=== PATIENT | female | born 1950 | race Caucasian/White ===

== ENCOUNTER 2017-09-17 17:39 | Emergency (ER) | payer MEDICAID, SELFPAY ==
[2017-09-17 17:40] VITALS: BP 144/96; PULSE 72; RESP 17; TEMP 36.7; O2SAT 98; BMI 24.3
--- NOTE | 2017-09-17 18:15 | EKG12_ITS ---
Test Reason : CP Blood Pressure : / mmHG Vent. Rate : 063 BPM Atrial Rate : 063 BPM P-R Int : 212 ms QRS Dur : 084 ms QT Int : 398 ms P-R-T Axes : 063 037 059 degrees QTc Int : 407 ms Sinus rhythm with 1st degree A-V block Nonspecific T wave abnormality Abnormal ECG Confirmed by ALOK GALARZA, YESSI ([id number]), editor city SANDRA VILLARREAL ([id number]) on 09/19/2017 1:28:13 PM Referred By: BEREKET Confirmed By:YESSI DICKINSON MD
[2017-09-17 18:25] LABS: Absolute Lymphocyte Count 1.52 X10^3/ul (0.83-4.51); Absolute Neutrophil Count 3.2 X10^3/uL (2.0-7.7); Basophil# 0.03 X10^3/uL; Basophil% 0.6 % (0-1); Eosinophil# 0.11 X10^3/uL; Eosinophils% 2.1 % (0-5); Hematocrit 40.5 % (37-47); Hemoglobin 13.7 g/dl (12.0-15.0); Lymphocyte # 1.52 X10^3/ul (4.0); Lymphocyte % 28.6 % (19-41); Mean Corp Hgb Conc 33.8 g/gl (32-36); Mean Corpuscular Hgb 29.7 pg (27.0-32.0); Mean Corpuscular Volume 87.9 fL (81-99); Mean Platelet Vol. 10.9 fl (6.2-12.0); Monocyte# 0.48 X10^3/uL; Neutrophil # 3.16 X10^3/uL (2.7-7.7); Neutrophil % 59.5 % (47-70); Platelet Count 220 K/mm3 (150-450); RBC Distribution Width CV 12.7 % (11.6-14.6); RBC Distribution Width SD 40.8 fl (35.1-43.9); Red Blood Count 4.61 M/mm3 (4.2-5.4); White Blood Count 5.3 K/mm3 (4.4-11.0)
--- NOTE | 2017-09-17 18:25 | RAD_ITS ---
STUDY: X-RAY CHEST REASON FOR EXAM: Female, 67 years old. Chest pain. Dizziness. TECHNIQUE: Frontal and lateral views of the chest. COMPARISON: None. FINDINGS: There is hyperinflation of the lungs consistent with chronic obstructive lung disease (COPD). No infiltrates or effusions. There is no demonstrated pleural abnormality. Normal size heart. Normal mediastinum and luis alfredo. Normal visualized pulmonary arteries. Normal visualized aortic arch and descending thoracic aorta. There are diffuse degenerative changes of the visualized thoracic spine. Normal visualized ribs, clavicles, and shoulders. There is no demonstrated abnormality of the visualized soft tissue structures of the upper abdomen. RAD/Chest PA and Lateral IMPRESSION: There are findings consistent with COPD. There is no evidence of acute chest disease. Electronically Signed: Rajesh Owusu MD at 18:42 EDT , Service support ,
[2017-09-17 18:26] LABS: POSITIVE COUNT NO; POSITIVE DIFFERENTIAL NO; POSITIVE MORPHOLOGY NO
[2017-09-17] MEDS: Aspirin 81 MG TAB.CHEW 324 MG PO (18:35)
[2017-09-17 18:40] VITALS: BP 146/79; PULSE 61; RESP 14; O2SAT 98
[2017-09-17 18:49] LABS: Anion Gap 8 (5-15); BUN 15 mg/dL (7-18); BUN/Creat Ratio 15.1 RATIO (10-20); Calcium,Total 8.6 mg/dL (8.5-10.1); Chloride 106 mmol/L (98-107); Creatinine, Serum 0.99 mg/dL (0.55-1.02); EST Glomerular Filtration Rate 60 mL/min (>60); Est Glom Filt Rate - Afr Amer 72 mL/min (>60); Estimated Creatinine Clearance 55.09 ml/min; Glucose 116 mg/dL (74-106); Sodium Level 141 mmol/L (136-145)
--- NOTE | 2017-09-17 19:42 | ED.DCSUM_ITS ---
- ER Visit Summary Date of Service: 09/17/17 Chief Complaint: Chest pain History of Present Illness: The patient is a 67 F with intermittent chest pain, lasting for hours at a time, for the last 2 or 3 months. She states for the last 3 or 4 days, he has been constant. It is left-sided, heaviness and burning. She also notes some type of nodule in the lateral chest wall that is sore and she cannot tell this is related or not. The discomfort is nonpleuritic and nonexertional, she cannot recall anything in particular that makes it worse or better, or that triggers the episodes when she has them, before 4 days ago, they were about every 3 days or so. Last few days she has also had disequilibrium that she has noticed when walking or turning her head. It is relatively short-lived. It is associated with no nausea or vomiting or headache. She has had chronic tinnitus of the right ear and that is unchanged, no earache. She is not vertiginous right now. She has had some cold intolerance, and gets palpitations off and on, which causes her to take an extra Tapazole, which she has been on for several months because of Graves' disease, after taking iodine for a while that she did not tolerate well. She had a cardiac stress test 10-12 years ago that was negative. She states she made an appointment with the nurse practitioner at her PCPs office for tomorrow , but when she made the call they told her she should come to the hospital today , the weekend. She states has a history of paroxysmal A. fib. Physical Examination: Well-appearing in no acute distress. Vital signs unremarkable. There is a tender rib just lateral to the left upper quadrant of the left breast, there is no palpable nodule or axillary lymphadenopathy. The rest of her chest is nontender. Lungs are clear to auscultation throughout, no splinting on deep inspiration, heart is regular without a murmur. No tachycardia. No JVD. No ectopy on the monitor. No calf tenderness or pedal edema. Abdomen benign. Thyroid nontender. Test Results: Other than first-degree heart block her EKG is normal with a rate of 63. Labs include a troponin and are normal, however TSH is abnormal at 17. Chest x-ray unremarkable. Emergency Department Course and Treatment: She was given a GI cocktail and aspirin, she felt much better on reevaluation. I suspect it was due to the GI cocktail. Will prescribe her a PPI and advised that she follow-up with her doctor, and also advised to not take extra Tapazole. Treatment Plan: Protonix daily and follow-up Disposition: Discharge home Impression: Chest pain, unspecified Hypothyroid state This note was generated with Karaz dictation software. It may contain incorrect words, spelling, and punctuation that were not noted in review of the chart prior to signing ED Disposition - Plan for ED Patient: Disposition: Home or Assisted Living Chief Complaint: Chest Pain Instructions: ED Chest Pain NonCardiac Prescriptions: Pantoprazole Sodium [Protonix] 40 mg PO DAILY #30 tab Referrals: Zulay Rodriguez MD [Primary Care Provider] - As soon as possible
[2017-09-17 19:58] VITALS: BP 133/75; PULSE 56; RESP 14; O2SAT 98
== END 2017-09-17 19:58 | disposition home or self-care (01) ==
PROVIDERS: Emergency Provider Emergency Medicine; Family Provider Internal Medicine; PCP Internal Medicine
DX: R07.9 Chest pain, unspecified (principal); E03.9 Hypothyroidism, unspecified; R51 Headache; R20.2 Paresthesia of skin; H93.11 Tinnitus, right ear; R42 Dizziness and giddiness; I44.0 Atrioventricular block, first degree; E05.00 Thyrotoxicosis with diffuse goiter without thyrotoxic crisis or storm; Z79.899 Other long term (current) drug therapy
CPT/HCPCS: 71046; 80048; 84443; 84484; 85025; 93005; 99285; A4216

== ENCOUNTER 2023-07-04 21:02 | Emergency (ER) | payer MEDICARE, MEDICAID, SELFPAY ==
[2023-07-04 21:03] VITALS: BP 140/98; PULSE 72; RESP 18; TEMP 36.6; O2SAT 99; BMI 20.7
--- NOTE | 2023-07-04 21:19 | EKG12_ITS ---
Test Reason : BACK PAIN Blood Pressure : / mmHG Vent. Rate : 074 BPM Atrial Rate : 074 BPM P-R Int : 192 ms QRS Dur : 080 ms QT Int : 380 ms P-R-T Axes : 063 033 073 degrees QTc Int : 421 ms Normal sinus rhythm Normal ECG Confirmed by ALOK GALARZA, YESSI ([id number]), food expeditor RONEY CURTIS ([id number]) on 07/07/2023 7:56:47 AM Referred By: Confirmed By:YESSI DICKINSON MD
--- NOTE | 2023-07-04 21:19 | CT_ITS ---
EXAM: CT ABDOMEN AND PELVIS WITHOUT INTRAVENOUS CONTRAST CLINICAL INDICATION: Right flank pain -- Right flank and pain into the right sacral area. TECHNIQUE: Helically acquired images were obtained of the abdomen and pelvis without intravenous contrast. This CT exam was performed using one or more of the following dose reduction techniques: automated exposure control, adjustment of the mA and/or kV according to patient size, and/or use of iterative reconstruction technique. CONTRAST: IV 100mL [id number]-[id number] COMPARISON: 02/16/2014 FINDINGS: LOWER THORAX: No significant abnormality. Lung bases are clear. No cardiomegaly. No significant pericardial effusion. ABDOMEN: LIVER: Multiple hepatic cysts are present for which no follow-up is indicated. GALLBLADDER AND BILE DUCTS: No significant abnormality. No calcified gallstones. No gallbladder distention or wall edema. No intra- or extrahepatic biliary ductal dilation. PANCREAS: No significant abnormality. No focal cystic mass. SPLEEN: No significant abnormality. Normal size without focal cystic or solid mass. ADRENALS: No significant abnormality. No nodules. KIDNEYS AND URETERS: No significant abnormality. Normal renal size and position. No hydronephrosis. STOMACH AND BOWEL: Moderate amount of colonic stool retention. No bowel obstruction. No focal inflammatory change. PELVIS: APPENDIX: No evidence of acute appendicitis. BLADDER: No significant abnormality. REPRODUCTIVE: Normal as visualized. No mass. ABDOMEN and PELVIS: INTRAPERITONEAL SPACE: No significant abnormality. No ascites or other fluid collection. No free air. BONES/JOINTS: Degenerative changes throughout the visualized axial and appendicular skeletal structures. No suspicious lytic or blastic abnormality. SOFT TISSUES: Small fat-containing umbilical hernia. VASCULATURE: Atherosclerosis of the aorta and its branch vessels. Abdominal aorta is non-dilated. LYMPH NODES: No significant abnormality. No enlarged lymph nodes. CT/Abdomen/Pelvis without Cont IMPRESSION: Moderate amount of colonic stool retention. No bowel obstruction. No additional acute abnormalities. Electronically Signed: Watson Loomis DO at 23:14 EST ,
--- NOTE | 2023-07-04 21:20 | EX.ED.DYSGE1 ---
HPI <Dr. Deondre Peralta MD - Last Filed: 07/04/23 22:49> History of Present Illness Chief Complaint: Flank Pain Informant: patient and EMS Narrative Narrative: Patient presents with right sacral area pain. Patient states that she has had this for 3 or 4 days. She thinks she slept wrong. She states she has problems sleeping on her sides. She cannot have her bones touch each other or they will come out of joint. She tosses and turns frequently. This has been going on more than 10 years. But she now has pain in the right lower sacral area. It does not radiate anywhere. She does not have abdominal pain nausea vomiting diarrhea or difficulty eating. She states she is urinating normally and has no trouble starting or stopping stream other than what is chronic. Bowel habits are normal without blood. She states she does have pain when she walks but it is in the sacral area and not the right hip. Does not have numbness tingling weakness or swelling in the legs. Patient thought this could be a urine infection even though she has no urinary symptoms. She took 1 nitrofurantoin at home that was leftover from years ago and it did not help. She has not taken anything for pain but does not want anything for pain. She will usually take vitamin E or turmeric. Patient is not on any medications now. She has had no recent trauma. No fevers. No acute weight loss. PFSH <Dr. Deondre Peralta MD - Last Filed: 07/04/23 22:49> [facility] Home Medications Methimazole [Tapazole] 10 mg PO DAILY 09/17/17 [History Last Taken Unknown] pantoprazole 40 mg tablet,delayed release 40 mg PO DAILY #30 tabs 09/17/17 [Rx Last Taken Unknown] gabapentin 100 mg capsule 100 mg PO TID 30 days #90 caps 07/04/23 [Rx Last Taken Unknown] methocarbamol 500 mg tablet 500 mg PO 4X/DAY PRN PRN Muscle pain/spasm #40 tabs 07/04/23 [Rx Last Taken Unknown] Allergy/AdvReac Type Severity Reaction Status Date / Time blue dye Allergy Rash Verified 07/04/23 21:03 Penicillins Allergy Rash Verified 07/04/23 21:03 red dye Allergy Rash Verified 07/04/23 21:03 Social History Smoking Status: Never smoker ROS <Dr. Deondre Peralta MD - Last Filed: 07/04/23 22:49> ROS ED Constitutional Constitutional ED: Denies chills, fever(s) or sweats Eyes Eyes: Denies change in vision ENT ENT ED: Denies rhinorrhea or sore throat Cardiovascular Cardiovascular: Denies chest pain or palpitations Respiratory/Chest Respiratory/Chest: Denies cough or dyspnea Gastrointestinal Gastrointestinal: Denies abdominal pain, constipation, diarrhea, melena, nausea or vomiting Genitourinary Genitourinary ED: Denies dysuria, hematuria or urinary frequency Musculoskeletal Musculoskeletal: Reports back pain and other Details: Patient has right lower sacral/back pain. See history of present illness. ; Denies arthralgias, myalgias or neck pain Integumentary Denies Abrasions or rash Neurologic Neurologic: Denies paresthesias or weakness Endocrine Endocrinology: Denies polydipsia or polyuria Hematologic/Lymphatic Hematologic/Lymphatic: Denies easy bleeding, easy bruising or lymphadenopathy Allergic/Immunologic Allergic/Immunologic ED: Denies urticaria EXAM <Dr. Deondre Peralta MD - Last Filed: 07/04/23 22:49> Physical Exam Narrative Exam Narrative: CONSTITUTIONAL: Patient is nontoxic in appearance. The patient looks comfortable. Work of breathing looks normal. She carries on normal conversation HEENT: No notable trauma. Mucous membranes moist. EYES: No conjunctival injection. No pallor. NECK: No meningismus. No JVD. CARDIOVASCULAR: Regular rate. Regular rhythm. No notable murmur. No JVD. RESPIRATORY: No respiratory distress. Breathing is unlabored. No wheezes. Saturations are normal at 99% on room air showing no hypoxia. GASTROINTESTINAL: Not distended. Bowel sounds are normal. No tenderness. No guarding. No rebound. No palpable mass. No bruit. Overall very benign abdominal exam. GENITOURINARY: No tenderness over the bladder. No CVA tenderness. Her pain is actually much lower than the normal CVA area. MUSCULOSKELETAL: Atraumatic. No peripheral edema. No cord. No tenderness along the deep venous system. No asymmetry. Distal pulses are intact. I am able to axial load her legs and rotate her legs and hips without any obvious pain. When I do load her heel on the right she has a little bit of discomfort in the sacral area but not nearly as much is when she weight bears. She has a little bit of tenderness near the SI joint on the right. But no skin changes. There is a tattoo there but no sign of inflammation. No erythema. No vesicles. NEUROLOGICAL: Patient is alert and oriented. No focal deficit noted. There is no distal sensory changes. No weakness. No asymmetry of strength. She denies any radiation of pain. SKIN: No noted rashes. No diaphoresis. No vesicles noted. No notable pallor. PSYCHIATRIC: Patient is calm. Mood is appropriate. Const Vital Signs: 07/04/23 21:03 Temperature 97.8 F Temperature Source Oral Pulse Rate 72 Respiratory Rate 18 Blood Pressure 140/98 H Blood Pressure Mean 112 Pulse Ox 99 Oxygen Delivery Method Room Air <Dr. Jaleel Montague DO - Last Filed: 07/04/23 23:42> Physical Exam Const Vital Signs: 07/04/23 21:03 Temperature 97.8 F Temperature Source Oral Pulse Rate 72 Respiratory Rate 18 Blood Pressure 140/98 H Blood Pressure Mean 112 Pulse Ox 99 Oxygen Delivery Method Room Air MDM <Dr. Deondre Peralta MD - Last Filed: 07/04/23 22:49> [facility] MDM Narrative Medical decision making narrative: Patient was concerned about her kidney function. We will do blood work. We will do a scan through the area. I do not think this patient sees physicians a lot. I would like to make sure there is no kidney stone but also I want to make sure there is no mass or tumor or issue that may be causing her pain. She does not want anything for pain now because she does not like to take medications. We will respect this. Patient CBC is normal. Patient's electrolytes show no marked abnormalities minimal signs of dehydration with elevated BUN to creatinine ratio but she was given IV fluid. No urine callus this is clean. She does want the CT scan. However, she does not want IV contrast. I told CT it was okay to get these films without the contrast. We would still see kidney stone, significant mass or any erosive bony lesion without contrast. This study is pending at this time. Lab Data Attestation: I reviewed the patient's lab results. Labs: Laboratory Results - last 24 hr 07/04/23 07/04/23 21:48 21:50 WBC 5.8 RBC 4.45 Hgb 12.7 Hct 39.0 MCV 87.6 MCH 28.5 MCHC 32.6 RDW Std Deviation 37.9 RDW Coeff of Dave 11.8 Plt Count 250 MPV 10.5 Immature Gran % (Auto) 0.300 Neut % (Auto) 66.6 Lymph % (Auto) 20.8 Power % (Auto) 8.5 Eos % (Auto) 3.3 Baso % (Auto) 0.5 Absolute Neuts (auto) 3.8 Absolute Lymphs (auto) 1.20 Nucleated RBC % 0 Sodium 141 Potassium 4.1 Chloride 108 H Carbon Dioxide 30.0 Anion Gap 3 L BUN 19 H Creatinine 0.73 Estim Creat Clear Calc 62.22 Est GFR (MDRD) Af Amer 102 Est GFR (MDRD) Non-Af 84 BUN/Creatinine Ratio 26.2 H Glucose 84 Calcium 9.0 Urine Color Yellow Urine Clarity Clear Urine pH 7.0 Ur Specific [place] 1.010 Urine Protein Negative Urine Glucose (UA) Normal Urine Ketones Negative Urine Occult Blood Negative Urine Nitrite Negative Urine Bilirubin Negative Urine Urobilinogen Normal Ur Leukocyte Esterase 25 H Urine RBC 0 SEEN Urine WBC 0-5 SEEN Ur Squamous Epith Cells 0 SEEN Urine Bacteria 0 SEEN Urine Mucus 0 SEEN Radiography Diagnostic Testing: Clinical Impression(s) from Imaging Studies Abdomen/Pelvis CT 07/04/23 21:19 IMPRESSION: Moderate amount of colonic stool retention. No bowel obstruction. No additional acute abnormalities. Electronically Signed: Watson Loomis DO at 23:14 EST , EKG Initial EKG: Comments: My independent interpretation of the patient's EKG shows a normal sinus rhythm. Overall rate is 74. No ectopy. There is some baseline variation though. No acute ST elevation or depression. UT interval, QRS duration and QTc are all normal. <Dr. Jaleel Montague DO - Last Filed: 07/04/23 23:42> [facility] Lab Data Labs: Laboratory Results - last 24 hr 07/04/23 07/04/23 21:48 21:50 WBC 5.8 RBC 4.45 Hgb 12.7 Hct 39.0 MCV 87.6 MCH 28.5 MCHC 32.6 RDW Std Deviation 37.9 RDW Coeff of Dave 11.8 Plt Count 250 MPV 10.5 Immature Gran % (Auto) 0.300 Neut % (Auto) 66.6 Lymph % (Auto) 20.8 Power % (Auto) 8.5 Eos % (Auto) 3.3 Baso % (Auto) 0.5 Absolute Neuts (auto) 3.8 Absolute Lymphs (auto) 1.20 Nucleated RBC % 0 Sodium 141 Potassium 4.1 Chloride 108 H Carbon Dioxide 30.0 Anion Gap 3 L BUN 19 H Creatinine 0.73 Estim Creat Clear Calc 62.22 Est GFR (MDRD) Af Amer 102 Est GFR (MDRD) Non-Af 84 BUN/Creatinine Ratio 26.2 H Glucose 84 Calcium 9.0 Urine Color Yellow Urine Clarity Clear Urine pH 7.0 Ur Specific [place] 1.010 Urine Protein Negative Urine Glucose (UA) Normal Urine Ketones Negative Urine Occult Blood Negative Urine Nitrite Negative Urine Bilirubin Negative Urine Urobilinogen Normal Ur Leukocyte Esterase 25 H Urine RBC 0 SEEN Urine WBC 0-5 SEEN Ur Squamous Epith Cells 0 SEEN Urine Bacteria 0 SEEN Urine Mucus 0 SEEN Radiography Diagnostic Testing: Clinical Impression(s) from Imaging Studies Abdomen/Pelvis CT 07/04/23 21:19 IMPRESSION: Moderate amount of colonic stool retention. No bowel obstruction. No additional acute abnormalities. Electronically Signed: Watson Loomis DO at 23:14 EST , Treatment and Re-Evaluation Comments:: The patient was signed out to me while awaiting the abdominal CT. History of duodenal mild/moderate colonic stool constipation but otherwise no signs of obstruction or infectious process or kidney stone or tumor or mass. Based on her history and exam I do feel this is most likely pain from her sacroiliac joint. I will place her on Robaxin and gabapentin to help with pain. Based on the constipation she will be prescribed magnesium citrate. However at this time as there does not appear to be an infectious process or some type of new tumor or obstruction there is no need for inpatient admission and she is otherwise safe for discharge Discharge Plan Triage Chief Complaint: Flank Pain ED Provider: Deondre Peralta Dx/Rx/DC Orders Clinical Impression: Pain of right sacroiliac joint Instructions: Anatomy of the Sacroiliac Joint, ED Sacroiliitis Prescriptions: New methocarbamol 500 mg tablet 500 mg PO 4X/DAY PRN PRN (Reason: Muscle pain/spasm) Qty: 40 1RF gabapentin 100 mg capsule 100 mg PO TID 30 Days Qty: 90 0RF No Action Methimazole [Tapazole] 10 MG tablet 10 mg PO DAILY pantoprazole 40 MG tablet 40 mg PO DAILY Qty: 30 0RF Primary Care Provider: Zulay Rodriguez Referrals: Zulay Rodriguez MD [Primary Care Provider] - Activity Restrictions/Additional Instructions: Please use the magnesium citrate that was given to you in the ER to help with your constipation. Perform stretches for your sacroiliac joint to reduce pain and speed healing and use the prescribed medications as directed. Follow-up with your family doctor to discuss need for referral to orthopedics or potential pain management to discuss potential injections or further testing such as an MRI to further evaluate the cause your pain. Return to the ER should you have any further concerns Disposition Disposition: Home, Self Care Capacity <Dr. Deondre Peralta MD - Last Filed: 07/04/23 22:49> [employer] Reflex Medical hold order details:: IF a medical hold is selected below, a suggested order for a MEDICAL HOLD will reflex upon signing the document. Next of kin: [place] law dictates a PRIORITY LIST for identifying legal decision-maker/legal next of kin in the following order (LNOK): 1st: The patient?s legal guardian, if any 2nd: The patient's spouse (if status is questionable, consult Risk Management) 3rd: The patient?s adult child(geraldo) (majority, if multiple children) 4th: The patient?s parents 5th: The patient?s adult siblings (majority, if multiple children siblings)
--- OUTSIDE RECORDS SUMMARY | 2023-07-04 21:32 | XMS RPT_ITS | CCD ---
Author Name Unknown Address [address] [place] [address] Organization [facility] Care Team Providers Care Balloon Pilot Name Role Phone DUANE MORALEZ Attending Unavailable DEE ROACH Primary Care Unavailable Derian Rodriguez MD Primary Care Provider Derian Rodriguez MD Primary Care Provider Derian Rodriguez MD Primary Care Provider SERA BLACKWOOD Attending Unava ilable AZEEM DERIAN Ervin Primary Care Unavailable AZEEM DERIAN Ervin Primary Care Unavailable DESI JAMIL Referring Unavailable TALAMPAS DERIAN D Primary Care Unavailable DESI JAMIL Attending Unavailable TALAMPLINNETTE DERIAN D Primary Care Unavailable Allergies Allergy Classification Reported Allergen(s) Allergy Type Date of Onset Reaction(s) Facility (20 sources) Amoxicillin; Translations: [AMOXICILLIN] Drug Allergy 2 Rash, Itching [facility] Work Phone: (20 sources) Azithromycin; Translations: [AZITHROMYCIN] Drug Allergy 0 Hives [facility] Work Phone: (20 sources) celecoxib; Translations: [CELECOXIB] Drug Allergy 0 Other: See Comments [facility] Work Phone: (20 sources) Contrast media; Translations: [RED DYE] Drug Allergy [address] [facility] (20 sources) montelukast; Translations: [MONTELUKAST SODIUM] Drug Allergy [address] [facility] Work Phone: (13 sources) Penicillins; Translations: [PENICILLINS] Propensity to adverse reactions 5 [facility] Work Phone: (20 sources) Sucralfate; Translations: [SUCRALFATE] Drug Allergy 1 Hives, GI Upset [facility] Work Phone: (20 sources) Sulfonamides (Antibiotic); Translations: [SULFA (SULFONAMIDE ANTIBIOTICS)] Drug Allergy 7 Hives [facility] (20 sources) zafirlukast; Translations: [ZAFIRLUKAST] Drug Allergy 5 Rash [facility] Work Phone: (20 sources) zolpidem; Translations: [ZOLPIDEM TARTRATE] Drug Allergy 6 Itching [facility] Work Phone: (20 sources) Penicillins Propensity to adverse reactions 5 [facility] Work Phone: Medications Current Medications Medication Drug Class(es) Dates Sig (Normalized) Sig (Original) acetaminophen 325 mg / oxyCODONE hydrochloride 5 mg oral tablet (2 sources) Opioid Agonist Start: 11-01-2021 End: 11-08-2021 take 1 tablet by mouth every six hours as needed oxyCODONE-acetami nophen (PERCOCET) 5-325 mg tablet Indications: Acute left-sided low back pain without sciatica , Chronic pain of both knees , Chronic bilateral low back pain with left-sided sciatica Take 1 tablet by mouth every 6 hours as needed for up to 7 days. 28 tablet 0 11/01/2021 11/08/2021 Active Completed/Discontinued Medications Medication Drug Class(es) Dates Sig (Normalized) Sig (Original) cholecalciferol 0.125 mg oral tablet (20 sources) Vitamin D Start: 12-11-2019 End: 06-29-2022 take 1 tablet by mouth once daily cholecalciferol (VITAMIN D3) 5,000 unit tab Take 1 tablet by mouth once daily. 90 tablet 3 06/29/2022 Active Problems Active Problems Problem Classification Problem Date Documented Date Episodic/Chronic Asthma (20 sources) Mild intermittent asthma; Translations: [Mild intermittent asthma, uncomplicated] Onset: 05-09-2005 01-12-2017 Chronic Cardiac dysrhythmias (20 sources) Atrial flutter; Translations: [Unspecified atrial flutter] Onset: 06-15-2006 06-15-2006 Chronic Conditions associated with dizziness or vertigo (1 source) Benign paroxysmal positional vertigo; Translations: [Benign paroxysmal vertigo, unspecified ear] Episodic Diabetes mellitus without complication (1 source) Impaired fasting glycemia; Translations: [Impaired fasting glucose] Episodic Disorders of teeth and jaw (2 sources) Toothache; Translations: [Other specified disorders of teeth and supporting structures] Onset: 02-27-2023 02-28-2023 Episodic Esophageal disorders (20 sources) Gastroesophageal reflux disease; Translations: [Gastro-esophageal reflux disease without esophagitis] Onset: 05-09-2005 05-09-2005 Chronic Genitourinary symptoms and ill-defined conditions (2 sources) Dysuria; Translations: [Dysuria] Episodic Malaise and fatigue (1 source) Fatigue; Translations: [Chronic fatigue, unspecified] Chronic Malaise and fatigue (2 sources) Fatigue; Translations: [Other fatigue] Episodic Menopausal disorders (20 sources) Atrophic vaginitis; Translations: [Postmenopausal atrophic vaginitis] 12-18-2018 Chronic Miscellaneous mental health disorders (1 source) Primary insomnia; Translations: [Primary insomnia] Chronic Mood disorders (20 sources) Bipolar disorder; Translations: [Bipolar disorder, unspecified] Onset: 06-15-2006 06-15-2006 Chronic Nutritional deficiencies (1 source) Vitamin D deficiency; Translations: [Vitamin D deficiency, unspecified] Chronic Osteoarthritis (3 sources) Primary coxarthrosis, bilateral; Translations: [Bilateral primary osteoarthritis of hip] Onset: 04-12-2022 Chronic Other aftercare (4 sources) Patient encounter status; Translations: [Other nursing home (current) drug therapy] Episodic Other aftercare (1 source) Encounter for therapeutic drug level monitoring; Translations: [Encounter for therapeutic drug monitoring] Onset: 02-28-2023 Episodic Other connective tissue disease (2 sources) Muscle pain; Translations: [Myalgia, unspecified site] Episodic Other injuries and conditions due to external causes (1 source) Injury of right knee; Translations: [Unspecified injury of right lower leg, subsequent encounter] Episodic Other non-traumatic joint disorders (2 sources) Multiple joint pain; Translations: [Pain in unspecified joint] Episodic Other non-traumatic joint disorders (3 sources) Pain in right knee; Translations: [Pain in joint, lower leg] Episodic Residual codes; unclassified (2 sources) History of clinical finding in subject; Translations: [Personal history of other specified conditions] Episodic Thyroid disorders (20 sources) Hyperthyroidism; Translations: [Thyrotoxicosis, unspecified without thyrotoxic crisis or storm] Onset: 05-09-2005 04-23-2015 Chronic Past or Other Problems Problem Classification Problem Date Documented Da te Episodic/Chronic Allergic reactions (20 sources) Solar degeneration; Translations: [Other skin changes due to chronic exposure to nonionizing radiation] Onset: 04-23-2012 04-23-2012 Episodic Other injuries and conditions due to external causes (1 source) Unspecified injury of unspecified lower leg, initial encounter; Translations: [Knee injury, initial encounter] Onset: 04-12-2022 Episodic Other non-traumatic joint disorders (20 sources) Arthralgia of the pelvic region and thigh; Translations: [Pain in unspecified hip] Onset: 03-01-2011 03-01-2011 Episodic Other non-traumatic joint disorders (20 sources) Pain in right hip joint; Translations: [Pain in right hip] Onset: 07-25-2011 07-25-2011 Episodic Other non-traumatic joint disorders (1 source) Effusion, right knee; Translations: [Effusion of right knee] Onset: 04-12-2022 Episodic Other skin disorders (20 sources) Solar lentigo; Translations: [Other melanin hyperpigmentation] Onset: 04-23-2012 04-23-2012 Episodic Other skin disorders (20 sources) Seborrheic keratosis; Translations: [Other seborrheic keratosis] Onset: 04-23-2012 04-23-2012 Episodic Spondylosis; intervertebral disc disorders; other back problems (20 sources) Sciatica; Translations: [Sciatica, left side] Onset: 01-12-2010 01-12-2010 Episodic Sprains and strains (20 sources) Sprain of spinal ligament; Translations: [Sprain of unspecified site of back] Onset: 03-01-2011 03-01-2011 Episodic Viral infection (20 sources) Verruca vulgaris; Translations: [Viral wart, unspecified] Onset: 04-23-2012 04-23-2012 Episodic Results Test Name Value Interpretation Reference Range Facil ity Vital Signs Date Time Vital Sign Value Performing Clinician Geoff moore 02-28-2023 14:51-0400 Body temperature 97.59 [degF] Desi Loulou EDITOR MANAGING DIRECTOR.POWDER NIPPER Work Phone: [facility] 02-28-2023 14:51-0400 Body weight 58.51 kg Desi Loulou EDITOR MANAGING DIRECTOR.POWDER NIPPER Work Phone: [facility] 02-28-2023 14:51-0400 Diastolic blood pressure 60 mm[Hg] Desi Loulou EDITOR MANAGING DIRECTOR.POWDER NIPPER Work Phone: [facility] 02-28-2023 14:51-0400 Heart rate 100 /min Desi Loulou EDITOR MANAGING DIRECTOR.POWDER NIPPER Work Phone: [facility] 02-28-2023 14:51-0400 Respiratory rate 16 /min Desi Loulou EDITOR MANAGING DIRECTOR.POWDER NIPPER Work Phone: [facility] 02-28-2023 14:51-0400 Systolic blood pressure 90 mm[Hg] Desi Loulou EDITOR MANAGING DIRECTOR.POWDER NIPPER Work Phone: [facility] 05-13-2022 11:59-0500 Diastolic blood pressure 72 mm[Hg] Derian Rodriguez MD Work Phone: [facility] 05-13-2022 11:59-0500 Systolic blood pressure 140 mm[Hg] Derian Rodriguez MD Work Phone: [facility] 05-13-2022 11:58-0500 Heart rate 62 /min Derian Rodriguez MD Work Phone: [facility] 05-13-2022 11:58-0500 SaO2% (BldA) [Mass fraction] 100 % Derian Rodriguez MD Work Phone: [facility] 11-01-2021 10:03-0400 Body weight 68.95 kg Derian Rodriguez MD Work Phone: [facility] 11-01-2021 10:03-0400 Diastolic blood pressure 72 mm[Hg] Derian Rodriguez MD Work Phone: [facility] 11-01-2021 10:03-0400 Heart rate 80 /min Derian Rodriguez MD Work Phone: [facility] 11-01-2021 10:03-0400 Systolic blood pressure 120 mm[Hg] Derian Rodriguez MD Work Phone: [facility] 10-01-2021 09:55-0400 Body weight 72.03 kg Karla Tello EDITOR MANAGING DIRECTOR.POWDER NIPPER Work Phone: [facility] 10-01-2021 09:55-0400 Diastolic blood pressure 78 mm[Hg] Karla Tello EDITOR MANAGING DIRECTOR.POWDER NIPPER Work Phone: [facility] 10-01-2021 09:55-0400 Heart rate 70 /min Karla Tello EDITOR MANAGING DIRECTOR.POWDER NIPPER Work Phone: [facility] 10-01-2021 09:55-0400 Respiratory rate 20 /min Karla Tello EDITOR MANAGING DIRECTOR.POWDER NIPPER Work Phone: [facility] 10-01-2021 09:55-0400 SaO2% (BldA) [Mass fraction] 97 % Karla Tello EDITOR MANAGING DIRECTOR.POWDER NIPPER Work Phone: [facility] 10-01-2021 09:55-0400 Systolic blood pressure 118 mm[Hg] Karla Tello EDITOR MANAGING DIRECTOR.POWDER NIPPER Work Phone: [facility] Encounters Encounter Date Encounter Type Care Provider Facility Start: 05-02-2023 Telephone encounter Derian mcmanus MD Work Phone: [facility] Procedures Date Procedure Procedure Detail Performing Clinician Start: 02-28-2023 Urnls dip stick/tabl et rgnt auto w/o microscopy Desi Jamil EDITOR MANAGING DIRECTOR.POWDER NIPPER Work Phone: Start: 05-13-2022 Lipid 1996 panel - S sonia or Plasma Desi Jamil EDITOR MANAGING DIRECTOR.POWDER NIPPER Work Phone: Start: 10-14-2020 Adult depression scr eening assessment Derian Rodriguez MD Work Phone: Start: 05-09-2018 Colonoscopy Derian beckett MD Work Phone: Start: 08-23-2016 Mammography Derian beckett MD Work Phone: Plan of Treatment Date Care Activity Detail Author Start: 05-13-2027 Lipid 1996 panel - S sonia or Plasma Lipid Screening [facility] Start: 05-13-2027 LIPID SCREEN LIPID SCREEN [facility] Start: 02-28-2026 Diabetes Screening Diabetes Screenwi g [facility] Start: 05-13-2025 DIABETES SCREEN DIABETES SCREEN [facility] Start: 05-13-2025 Diabetes Screening Diabetes Screenin g [facility] Start: 11-01-2024 DIABETES SCREEN DIABETES SCREEN [facility] Start: 10-01-2024 DIABETES SCREEN DIABETES SCREEN [facility] Start: 02-29-2024 Annual PCP Team Junior Administrative Assistant naomie Disease Visit Annual PCP Team Chronic Disease Visit [facility] Start: 12-01-2023 DIABETES SCREEN DIABETES SCREEN [facility] Start: 05-13-2023 ANNUAL PCP TEAM ELECTRIC BLASTING CAP ASSEMBLER NAOMIE DISEASE VISIT ANNUAL PCP TEAM CHRONIC DISEASE VISIT [facility] Start: 02-28-2023 End: 04-30-2023 Comprehensive metabolic 2000 panel - Serum or Plasma [facility] Work Phone: Immunizations Immunization Date Immunization Notes Care Provider Lindsay fowler 05-09-2018 influenza virus vaccine, unspecified formulation Desi Jamil APRN.CNP Work Phone: [facility] 12-24-2008 tetanus toxoid, redu elizabeth diphtheria toxoid, and acellular pertussis vaccine, adsorbed Derian Rodriguez MD Work Phone: [facility] Work Phone: 05-24-2004 influenza virus vaccine, unspecified formulation Derian Rodriguez MD Work Phone: [facility] Work Phone: Payers Date Payer Category Payer Medicaid [id number] 2020 Medicaid MEDICAID [facility] MEDICAID [id number] 2020-Present [phone] [address] [place] [address] Medicaid [id number] 2020 Medicaid [id number] 2020 Medicaid [id number] 2018 Medicaid [id number] 1950 Unknown [id number] Social History Date Type Detail Facility Start: 09-21-2012 Tobacco smoking stat [facility] Never smoked tobacco [facility] Start: 02-13-2021 End: 02-28-2023 Alcohol intake Current non-drinker of alcohol (finding) [facility] Start: 1950 Sex Assigned At Not on file [facility] Start: 09-19-2021 End: 05-13-2022 Exposure to SARS-CoV-2 (event) Not sure [facility] Start: 09-21-2012 Tobacco use and exposure Smokeless tobacco non-user [facility] Work Phone: Start: 03-20-2019 End: 02-28-2023 History of Social function [facility] Start: 03-20-2019 End: 02-28-2023 Tobacco use panel [facility] Adult Depression Screening Assessment 0 [facility] Clinical Notes 09-29-2021 to 05-22-2023 Telephone Encounter - Milagros Stover LPN - 05/22/2023 3:50 PM ESTTelephone Encounter - Adriana Buchanan LPN - 05/19/2023 2:38 PM ESTTelephone Encounter - Byron Burleson RN - 05/18/2023 1:48 PM EST Note Date & Type Note Facility 05-22-2023 Miscellaneous Notes Pt called back and information listed below given. Pt will check with [facility]. Milagros Stover LPN Completed CMN form has been faxed back. Attempted to contact patient but no answer and recording received stating The wireless customer is not available. Addendum to 05/13/22 progress note since had discussed need for bed pads at that appointment and that is related to her need for other incontinence supplies. CMN in office Not sure if signed already and just waiting for the addended progress note. The following approved medication requests have been transmitted electronically. Requested Prescriptions Signed Prescriptions Disp Refills Diaper,Brief, Adult,Disposable (DISPOSABLE BRIEF) 350 Each 11 Sig: Pull ups (no diaper) Large Attends (or equivalent) 10 to 12 daily.Size Large.Maximum absorbancy. Diagnoses: N95.2 Post menopausal atrophic vaginitis, R32 urinary incontinence unspecified type, R15.9 incontinence of feces unspecified fecal incontinence type. Authorizing Provider: DERIAN RODRIGUEZ MD Patient verbalized frustration, stating she has waited 5 weeks to get these pull-ups. States she has been using her grocery money to buy these and she cannot afford that. Asking if pcp can complete CMN and fax to ABDULAZIZ Rodriguez. Patient aware [facility] Rodriguez has the pull up Rx. Did receive the CMN and PCP to complete. Andra Drummond LPN Order faxed to [facility]ano Rodriguez / fax [phone]. Still no CMN received. Andra Drummond LPN Patient calling said form was faxed on 05/08, she did not know to what fax number. Gave her PCP fax number and patient will call and have form faxed again. Patient is calling and is very upset, she is out of supplies, she needs help today. She stated please call her more than once. Her phone will not accept the calls from the office. Fax order to [facility] Is there a CMN that still needs signed? Patient is calling today regarding the order for these pull ups Large- Attends using 10-12 daily Dx: N95.2 and R32 R15.9 Please send to [facility] / fax [phone] The order per patient was sent in error to [facility] who do not do the DME, that is per patient, [facility] is where this is to be faxed to. Please resend printed RX to fax above Have we received CMN? Make sure received and signed YUKO in AM 05/09 Verify we have all the info needed for CMN, including how many needed per day and diagnoses Patient called and is very upset. Said [facility] still has not received the CMN for her large pullups. Said she has spent all of her money buying pullups at [facility] [employer] waiting on the order and CMN for the last month. Wants to know the status of it today. Said she will call us back in 2 hours to check. We are unable to call her because there is an issue with her phone. A CMN form has not been received. Called [facility] office at [phone] and spoke with Ignacia. Did confirm that the CMN was sent to the wrong fax number. Provider her with the correct number. Will await form prior to closing encounter. Nakita Emerson is calling Derian Rodriguez MD today. [facility] received the correct size large order for the adult diaper briefs, however, they still need an CMN before the order can be filled. Please fax as soon as possible, she's been trying get these for a couple of week. Please fax to [phone] documented in this encounter [facility] 04-26-2023 Miscellaneous Notes Order has been located and faxed to number provided below. Copied and pasted message below from a closed encounter. This is for Pull ups. Has this been faxed? \Sylvia Oliver CB 04/26/23 2:17 PM Note Patient calling back stating that [facility] still has not received the orders. Patient states we are using the wrong fax number. Fax number [phone]. documented in this encounter [facility] 04-19-2023 Miscellaneous Notes Order faxed to [facility]. Attempted to reach patient but phone is disconnects. New RX printed, will sign and we can fax to [facility]. Thanks! Nakita Emerson is calling Derian Rodriguez MD today with concern regarding Orders and Medication Problem (/) Patient is calling in asking to have NEW order for pullup's and they need to be Large Attends and this needs to go to [facility]. States that the Medium they sent does NOT fit. Patient has been identified by name and birthdate. Duration of symptoms: N/A Person calling: self Call patient at: at home [phone] (home) [phone] (cell) Was an appointment scheduled: No Closing statement: Results or non-symptom based questions: Thank you for calling [facility], your call will be returned within the next business day. Bridget Salcedo documented in this encounter [facility] 03-03-2023 Miscellaneous Notes Patient returned call and went over results, notes from Desi Jamil LEAD SYSTEMS ENGINEER with understanding. Patient said no to taking thyroid medication question. Attempted to reach patient with no answer and unable to leave a message. Pts phone gives message, wireless customer you are calling is not available please try again later. . Called and left a message on Pts daughter Haresh REAGAN asking to call back for message. Need to let her know we were trying to get a hold of her mother to give her information and were not able to get through. See if daughter would be able to have her mother call in for results. Please call patient and let her know that her blood counts, kidney function, liver function and electrolytes are stable and without issues. The thyroid test shows her thyroid is very overactive. She could definitely benefit from treatment. I know previously she refused, is she interested in medication for this at this time? documented in this encounter [facility] 03-01-2023 Miscellaneous Notes Patient seen 02/28/23. Patient is scheduled 02/28/23 to request a referral to an oral surgeon. Patient was in [place] [facility] 02/27/23 for same request. [place] [facility] recommended that patient contact her insurance provider to find an oral surgeon in network with her insurance. Attempted to reach patient to question why patient is seeing Desi for same issues. Nothing different that Desi can do vs what ER told her to do. If she contacted her insurance provider and just needs a referral to oral surgeon in network can place referral without having to see her. No answer and unable to leave a message. documented in this encounter [facility] 02-28-2023 Note HNO ID: [id number] Author: Desi Jamil APRN.NAGA Service: ? Author Type: Nurse Practitioner Type: Progress Notes Filed: 02/28/2023 4:46 PM Note Text: SUBJECTIVE Nakita Emerson is a 72 year old female here today for ER follow up. Chief Complaint Patient presents with: Consult: dental surgeon questioning fracture to jaw after seen a dentist on 02/03/23 headache on left side since seeing dentist. Dysuria: started on 02/03/2023 HPI Nakita Emerson is a 72 year old female patient of Derian Rodriguez MD. Seen in [place] ER yesterday for dental pain. She had a tooth extraction in January. Dentist caused some issues. Concerns of repair needing an oral surgeon. Not sure who takes her insurance but would like a referral. Also wants to update her labs. Hyperthyroid but no recent lab check. Also has concerns of dysuria, onset was about a month ago. Her medications were reviewed today and her list is now up to date. Medications Current Outpatient Medications Medication Sig nitrofurantoin monohydrate and macrocrystal (MACROBID) 100 mg capsule Take 1 capsule by mouth twice daily. Diaper,Brief, Adult,Disposable (DISPOSABLE BRIEF) Pull ups (no diaper). Size TP 4525, small. Maximum absorbancy. Diagnoses: N95.2 Post menopausal atrophic vaginitis, R32 urinary incontinence unspecified type, R15.9 incontinence of feces unspecified fecal incontinence type. cholecalciferol (VITAMIN D3) 5,000 unit tab Take 1 tablet by mouth once daily. Comp.Stocking,Thigh,Long,Small [facility] [place] [place] Wear stocking daily. Patient requests stockings with zipper; extending from ankle to thigh. Custom fit if no available length fits. Underpads 23 X 36 pads 1 Each three times daily as needed. Dx:(N95.2) Post-menopausal atrophic vaginitis; (R32) Urinary incontinence, unspecified type; (R15.9) Incontinence of feces, unspecified fecal incontinence type levalbuterol tartrate HFA 45 mcg/actuation inhaler Inhale 1-2 Puffs as instructed every 4 hours as needed. (still has inhaler to use) potassium iodide (SSKI) 1 gram/mL solution 4 to 6 drops daily as directed multivit with minerals/lutein (MULTIVITAMIN 50 PLUS ORAL) Take by mouth. Diaper,Brief, Adult,Disposable (BRIEFS) [facility] [place] [place] Adult Diapers - Maximum absorbency, x-small/small size. Dx:(N95.2) Post-menopausal atrophic vaginitis; (R32) Urinary incontinence, unspecified type; (R15.9) Incontinence of feces, unspecified fecal incontinence type COMPOUNDED PRESCRIPTION Adult Diapers Sm-Med size (N95.2) Post-menopausal atrophic vaginitis; (R32) Urinary incontinence, unspecified type (R15.9) Incontinence of feces, unspecified fecal incontinence type; (E05.90) Hyperthyroidism coenzyme Q10 (COQ-10) 30 mg capsule Take 1 capsule by mouth once daily. COMPOUNDED PRESCRIPTION Super [place] supplement once daily No current facility-administered medications for this visit. ALLERGIES Allergen Reactions Amoxicillin Rash, Itching capsules Carafate [Sucralfat* Hives, GI Upset Nausea Accolate [Zafirluka* Rash Ambien [Zolpidem Ta* Itching Hives, itching Azithromycin Hives Pt relates to generic ingredient only. States does well with ZINA Jacob. Celebrex [Celecoxib] Other: See Comments chest heaviness Penicillins headache -can take amoxil Red Dye Rash component of generic celebrex Singulair [Monteluk* Rash Sulfa (Sulfonamide * Hives ACTIVE PROBLEM LIST Post-Menopausal Atrophic Vaginitis Comment: presumed cause of incontinence Graves Disease - 12/13/2018 Viral Warts, Unspecified - 04/23/2012 Solar Lentigo - 04/23/2012 Actinic Skin Damage - 04/23/2012 Other Seborrheic Keratosis - 04/23/2012 Right Hip Pain - 07/25/2011 Sprain of Unspecified Site of Back - 03/01/2011 Sprain and Strain of Unspecified Site of Shoulder and Upper Arm - 03/01/2011 Pain in Joint, Pelvic Region and Thigh - 03/01/2011 Left Sided Sciatica - 01/12/2010 Bipolar Disorder, Unspecified ([facility]) - 06/15/2006 Comment: [facility] - Has Counselor, refuses medication Atrial Flutter ([facility]) - 06/15/2006 Comment: She has intermittent AF secondary to hyperthyroidism Hyperthyroidism - 05/09/2005 Comment: Grave's Disease, will only take oral medications Mild Intermittent Asthma, Uncomplicated - 05/09/2005 Esophageal Reflux - 05/09/2005 Social History Tobacco Use Smoking status: Never Smokeless tobacco: Never Vaping Use Vaping Use: Never used Substance Use Topics Alcohol use: No Drug use: No Review of Systems HENT: Positive for dental problem. Respiratory: Negative. Cardiovascular: Negative. OBJECTIVE BP 90/60 Pulse 100 Temp (Src) 97.6 (Tympanic) Resp 16 Wt 129 lb (58.5kg) LMP 05/04/2005 Physical Exam Vitals and nursing note reviewed. Constitutional: General: She is awake. She is not in acute distress. Appearance: Normal appearance. She is well-developed and well-groomed. She is not ill-appearing, toxic-appearing or diaphoretic. HENT: Head: Nor (more content not included)... [facility] 02-28-2023 History of Presen t illness Narrative SUBJECTIVE Nakita Emerson is a 72 year old female here today for ER follow up. Chief Complaint Patient presents with: Consult: dental surgeon questioning fracture to jaw after seen a dentist on 02/03/23 headache on left side since seeing dentist. Dysuria: started on 02/03/2023 HPI Nakita Emerson is a 72 year old female patient of Derian Rodriguez MD. Seen in [facility] yesterday for dental pain. She had a tooth extraction in January. Dentist caused some issues. Concerns of repair needing an oral surgeon. Not sure who takes her insurance but would like a referral. Also wants to update her labs. Hyperthyroid but no recent lab check. Also has concerns of dysuria, onset was about a month ago. Her medications were reviewed today and her list is now up to date. Medications Current Outpatient Medications Medication Sig nitrofurantoin monohydrate and macrocrystal (MACROBID) 100 mg capsule Take 1 capsule by mouth twice daily. Diaper,Brief, Adult,Disposable (DISPOSABLE BRIEF) Pull ups (no diaper). Size TP 4525, small. Maximum absorbancy. Diagnoses: N95.2 Post menopausal atrophic vaginitis, R32 urinary incontinence unspecified type, R15.9 incontinence of feces unspecified fecal incontinence type. cholecalciferol (VITAMIN D3) 5,000 unit tab Take 1 tablet by mouth once daily. Comp.Stocking,Thigh,Long,Small misc Wear stocking daily. Patient requests stockings with zipper; extending from ankle to thigh. Custom fit if no available length fits. Underpads 23 X 36 pads 1 Each three times daily as needed. Dx:(N95.2) Post-menopausal atrophic vaginitis; (R32) Urinary incontinence, unspecified type; (R15.9) Incontinence of feces, unspecified fecal incontinence type levalbuterol tartrate HFA 45 mcg/actuation inhaler Inhale 1-2 Puffs as instructed every 4 hours as needed. (still has inhaler to use) potassium iodide (SSKI) 1 gram/mL solution 4 to 6 drops daily as directed multivit with minerals/lutein (MULTIVITAMIN 50 PLUS ORAL) Take by mouth. Diaper,Brief, Adult,Disposable (BRIEFS) [facility] [place] Adult Diapers - Maximum absorbency, x-small/small size. Dx:(N95.2) Post-menopausal atrophic vaginitis; (R32) Urinary incontinence, unspecified type; (R15.9) Incontinence of feces, unspecified fecal incontinence type COMPOUNDED PRESCRIPTION Adult Diapers Sm-Med size (N95.2) Post-menopausal atrophic vaginitis; (R32) Urinary incontinence, unspecified type (R15.9) Incontinence of feces, unspecified fecal incontinence type; (E05.90) Hyperthyroidism coenzyme Q10 (COQ-10) 30 mg capsule Take 1 capsule by mouth once daily. COMPOUNDED PRESCRIPTION Super Babylon supplement once daily No current facility-administered medications for this visit. ALLERGIES Allergen Reactions Amoxicillin Rash, Itching capsules Carafate [Sucralfat* Hives, GI Upset Nausea Accolate [Zafirluka* Rash Ambien [Zolpidem Ta* Itching Hives, itching Azithromycin Hives Pt relates to generic ingredient only. States does well with ZINA James. Celebrex [Celecoxib] Other: See Comments chest heaviness Penicillins headache -can take amoxil Red Dye Rash component of generic celebrex Singulair [Monteluk* Rash Sulfa (Sulfonamide * Hives ACTIVE PROBLEM LIST Post-Menopausal Atrophic Vaginitis Comment: presumed cause of incontinence Graves Disease - 12/13/2018 Viral Warts, Unspecified - 04/23/2012 Solar Lentigo - 04/23/2012 Actinic Skin Damage - 04/23/2012 Other Seborrheic Keratosis - 04/23/2012 Right Hip Pain - 07/25/2011 Sprain of Unspecified Site of Back - 03/01/2011 Sprain and Strain of Unspecified Site of Shoulder and Upper Arm - 03/01/2011 Pain in Joint, Pelvic Region and Thigh - 03/01/2011 Left Sided Sciatica - 01/12/2010 Bipolar Disorder, Unspecified (Hcc) - 06/15/2006 Comment: [facility] - Has Counselor, refuses medication Atrial Flutter (Hcc) - 06/15/2006 Comment: She has intermittent AF secondary to hyperthyroidism Hyperthyroidism - 05/09/2005 Comment: Grave's Disease, will only take oral medications Mild Intermittent Asthma, Uncomplicated - 05/09/2005 Esophageal Reflux - 05/09/2005 Social History Tobacco Use Smoking status: Never Smokeless tobacco: Never Vaping Use Vaping Use: Never used Substance Use Topics Alcohol use: No Drug use: No Review of Systems HENT: Positive for dental problem. Respiratory: Negative. Cardiovascular: Negative. OBJECTIVE BP 90/60 Pulse 100 Temp (Src) 97.6 (Tympanic) Resp 16 Wt 129 lb (58.5kg) LMP 05/04/2005 Physical Exam Vitals and nursing note reviewed. Constitutional: General: She is awake. She is not in acute distress. Appearance: Normal appearance. She is well-developed and well-groomed. She is not ill-appearing, toxic-appearing or diaphoretic. HENT: Head: Normocephalic. Right Ear: External ear normal. Left Ear: External ear normal. Nose: Nose normal. Mouth/Throat: Lips: Gully. Mouth: Mucous membranes are moist. Dentition: Abnormal dentition (several missing teeth). Eyes: General: Vision grossly intact. Conjunctiva/sclera: Conjunctivae normal. Pupils: Pupils are equal, round, and reactive to light. Neck: Vascular: No JVD. Trachea: Trachea normal. Pulmonary: Effort: Pulmonary effort is normal. No accessory muscle usage, prolonged expiration or respiratory distress. Musculoskeletal: Cervical back: Neck supple. Skin: General: Skin is warm and dry. Capillary Refill: Capillary refill takes less than 2 seconds. Neurological: General: No focal deficit present. Mental Status: She is alert and oriented to person, place, and time. Mental status is at baseline. Psychiatric: Attention and Perception: Attention and perception normal. Mood and Affect: Mood and affect normal. Speech: Speech normal. Behavior: Behavior normal. Behavior is cooperative. Thought Content: Thought content normal. Cognition and Memory: Cognition and memory normal. Judgment: Judgment normal. ASSESSMENT/PLAN: 1. Pain, dental - ICD9: 525.9, ICD10: K08.89 (primary diagnosis) She is going to call her insurance provider and find out where referral needs sent. - CONSULT TO DENTISTRY 2. Dysuria - ICD9: 788.1, ICD10: R30.0 - UA DIP B/O - NITROFURANTOIN MONOHYDRATE & MACROCRYSTAL 100 MG ORAL CAP 3. Hyperthyroidism - ICD9: 242.90, ICD10: E05.90 - TSH BLD 4. Encounter for therapeutic drug monitoring - ICD9: V58.83, ICD10: Z51.81 - CBC + DIFF - COMP METABOLIC PANEL - TSH BLD Portions of this note have been entered by ancillary staff. I have reviewed and when necessary edited, so that they are an adequate record of my encounter with this patient Please note that parts of this document were created using voice recognition software and therefore may contain grammatical errors. Patient verbalizes understanding of instructions from today's visit and in agreement with treatment plan. Questions answered. Agrees to call the office if questions, concerns of issues with acute symptoms not improving or if they worsen. See diagnoses and orders for additional plan(s). Allergies and medications were reviewed, list was updated, and refills given if needed. Past medical, surgical, social, and family history reviewed and updated as appropriate. Encouraged proper diet & exercise as well as compliance with taking medications. Age-appropriate health preventative measures were discussed. No follow-ups on file. Desi Jamil APRN-NAGA documented in this encounter [facility] 02-28-2023 Instructions Desi Jamil APRN.CNP - 02/28/2023 2:55 PM EDT Bhavya Hoffmann, and Tessie... [address] [place] [address]. [place] [address] [email or web address] documented in this encounter [facility] 11-23-2022 Note Patient Outreach (IN TMMN) NAKITA EMERSON ([id number]) 1950 F Date Time Provider Department 11/23/22 DERIAN RODRIGUEZ During your visit today, we recorded the following information about you: Allergies As of Date: 11/23/2022 Noted Allergy Reaction AMOXICILLIN 05/29/2012 2 - Rash 9 - Itching Comments: capsules CARAFATE (SUCRALFATE) 10/22/2020 4 - Hives 8 - GI Upset Comments: Nausea ACCOLATE (ZAFIRLUKAST) 03/30/2005 2 - Rash AMBIEN (ZOLPIDEM TARTRATE) 12/01/2015 9 - Itching Comments: Hives, itching AZITHROMYCIN 06/14/2010 4 - Hives Comments: Pt relates to generic ingredient only. States does well with ZINA James. CELEBREX (CELECOXIB) 11/05/2019 14 - Other: See Comments Comments: chest heaviness PENICILLINS 03/30/2005 Comments: headache -can take amoxil RED DYE 02/19/2015 2 - Rash Comments: component of generic celebrex SINGULAIR (MONTELUKAST SODIUM) 03/30/2005 2 - Rash SULFA (SULFONAMIDE ANTIBIOTICS) 01/12/2017 4 - Hives Date Reviewed: 04/12/2022 Reviewed by: Olivia Romero RN - Fully Assessed Visit Diagnosis:Encounter for screening mammogram for breast cancer [Z12.31] Order(s):[facility] SCREENING [[id number]] Order #: [id number] FUTURE Prescriptions as of 11/28/2022 - Diaper,Brief, Adult,Disposable (DISPOSABLE BRIEF) Pull ups (no diaper). Size TP 4525, small. Maximum absorbancy. Diagnoses: N95.2 Post menopausal atrophic vaginitis, R32 urinary incontinence unspecified type, R15.9 incontinence of feces unspecified fecal incontinence type. - cholecalciferol (VITAMIN D3) 5,000 unit tab Take 1 tablet by mouth once daily. - Comp.Stocking,Thigh,Long,Small misc Wear stocking daily. Patient requests stockings with zipper; extending from ankle to thigh. Custom fit if no available length fits. - Underpads 23 X 36 pads 1 Each three times daily as needed. Dx:(N95.2) Post-menopausal atrophic vaginitis; (R32) Urinary incontinence, unspecified type; (R15.9) Incontinence of feces, unspecified fecal incontinence type - levalbuterol tartrate HFA 45 mcg/actuation inhaler Inhale 1-2 Puffs as instructed every 4 hours as needed. (still has inhaler to use) - potassium iodide (SSKI) 1 gram/mL solution 4 to 6 drops daily as directed - multivit with minerals/lutein (MULTIVITAMIN 50 PLUS ORAL) Take by mouth. - Diaper,Brief, Adult,Disposable (BRIEFS) [facility] [place] Adult Diapers - Maximum absorbency, x-small/small size. Dx:(N95.2) Post-menopausal atrophic vaginitis; (R32) Urinary incontinence, unspecified type; (R15.9) Incontinence of feces, unspecified fecal incontinence type - COMPOUNDED PRESCRIPTION Adult Diapers Sm-Med size (N95.2) Post-menopausal atrophic vaginitis; (R32) Urinary incontinence, unspecified type (R15.9) Incontinence of feces, unspecified fecal incontinence type; (E05.90) Hyperthyroidism - coenzyme Q10 (COQ-10) 30 mg capsule Take 1 capsule by mouth once daily. - COMPOUNDED PRESCRIPTION Super [place] supplement once daily Problem List As Of Date 11/23/2022 Noted Resolved Hyperthyroidism [E05.90] 05/09/2005 Mild intermittent asthma, uncomplicated [J45.20]05/09/2005 ESOPHAGEAL REFLUX [K21.9] 05/09/2005 BIPOLAR DISORDER NOS [F31.9] 06/15/2006 ATRIAL FLUTTER [I48.92] 06/15/2006 Left Sided Sciatica [M54.32] 01/12/2010 Sprain of unspecified site of back [SMD9427] 03/01/2011 Sprain and strain of unspecified site of should*03/01/2011 Pain in joint, pelvic region and thigh [M25.559]03/01/2011 Right hip pain [M25.551] 07/25/2011 Viral warts, unspecified [B07.9] 04/23/2012 Solar lentigo [L81.4] 04/23/2012 Actinic skin damage [L57.8] 04/23/2012 Other seborrheic keratosis [L82.1] 04/23/2012 Graves disease [E05.00] 12/13/2018 Post-menopausal atrophic vaginitis [N95.2] Encounter Status:Closed by KADE JUSTICE on 11/28/22 [facility] 07-11-2022 Miscellaneous Notes Letter mailed to patient's home. Letter printed and awaiting PCP signature. Print letter I have pended Patient calls to request provider write a letter stating that she needs a roll in shower with level floor in the shower. Patient reports she has to be able to wheel a chair in to the shower and with the current letter she has they won't provide what she needs. Patient asks that letter be mailed to home address : [address] [place] [address] [address] [facility], [address] Maria Teresa Mo RN documented in this encounter [facility] 07-11-2022 Miscellaneous Notes Brendan Mendes [employer] corporate office in [place], asking when patient's last ov was for CMN for incontinent supplies. Advised last ov 05-13-22. documented in this encounter [facility] 07-06-2022 Miscellaneous Notes Script faxed to [facility]. I sent this electronically but I am pretty sure scripts for Michael, even though part of [facility], have to be sent to them at a separate fax so I printed the script too that way if it needs faxed we have the paper copy. Pt called in and reports [facility] had sent in a request for a RX from provider for Pts pull ups on 06/24/22. Pt reports she is almost out and asking if provider office could send this into [facility] for her. documented in this encounter [facility] 06-29-2022 Miscellaneous Notes Patient calling pharmacy does not have rx any longer, patient did not know it had been sent in last October. Reset rx to file. Patient said she can not afford to buy rx OTC needs to be rx. Please advise Patient has been identified by name and date of : Patient phones for refill(s): Requested Prescriptions Pending Prescriptions Disp Refills cholecalciferol (VITAMIN D3) 5,000 unit tab 90 tablet 3 Sig: Take 1 tablet by mouth once daily. Date of last office visit in primary care: 05/13/2022, has appt 09/16/2022 Last 2 Encounter Wt Readings: Date: Wt: 05/13/2022 0 kg () 04/12/2022 58.5 kg (129 lb) Previous labs/tests for medication: Not applicable Please advise. Thank you. July Ha LPN documented in this encounter [facility] 06-29-2022 Miscellaneous Notes Noted, will wait for her to return call to schedule There was a letter mailed 06/27/22 and noted in a telephone encounter dated 05/23/22 asking patient to call office. Can we please send a letter to patient regarding us trying to reach her to schedule a phone visit YUKO with Dr. Rodriguez to address concerns regarding messages below. Thank you. Do you want to send out letter to patient in regards to below?? See other open encounter. Patient not taking calls. Andra Drummond LPN TC to pt. Message states that she is unable to take calls at this time. Will try again later. Carlos Enrique Gary Ma Okay to schedule phone visit with me YUKO I will let Dr. Rodriguez address this since patient is known to her. We may be able to do the wheel chair assessment as a virtual but given Nakita's other concerns it may not be the best option but certainly if she needs seen then she needs seen and virtual is an option. Pt called in and she can not come in. She can not walk and she has no help. Pt not sure what to do. Pt requesting phone apt and it would need to come thru the [phone] at the clinic. Her phone number is [phone]. Please advise her on this if a phone apt can be done. Pt states if having trouble getting thru to her a text message to call the office and she will call in. Milagros Stover LPN Tried calling and message received was, The wireless customer you are calling is not available. . Attempted to reach patient with no answer and unable to leave a message. Recording received stating that The director external communications you are trying to reach is not available at this time. Please try again later. Can we please return her call and let her know that I recommend she talk with her insurance regarding wanting the power wheelchair, she should know that if she wants it for only outside of the home it is hard to get covered, most insurances will cover it if the power wheel chair is to help do her ADLs inside the home. Insurance often has a specific form they need filled out so she needs to have that form sent to our office and then she should schedule an office visit specifically to come in and have the power wheel chair evaluation completed. This would be the best way to get things done regarding this. See patient question about power wheelchair below. Gunnar had noted that she would pass message along to Dr. Rodriguez office to respond. [facility] No answer, Gunnar will try call again later. Gunnar left message for [facility] that Sw will try call again to her tomorrow morning. Sw [facility] saying that patient had questions about medication refills. Gunnar called patient and she reports that she had a question about motorized wheelchair.Gunnar noted that patient was in to see Dr. Rodriguez on 05/13/22. Sw asked if patient discussed questions about motorized wheelchair need when she was in to appt. Patient states that she was so tired from pushing self in to appt, that she did not think to bring that need up to Dr. Rodriguez. Sw noted that she would send message to Dr. Rodriguez to let her know about motorized wheelchair question. To Sw knowledge patient would have to have this discussed different an office visit for insurance coverage. Patient then said that she has trouble with broken teeth. Patient notes that she has been trying to search for oral surgeon and has not been able to locate any with her insurance. Patient and SW discussed contacting her [facility] Supervisor [employer]. [facility] notes that [facility] not been able to locate any assistance with home care aides or oral surgeon. Sw provided patient with [facility] for patient to call in regards to Oral Surgeon options they may have in the community or surrounding community for patient. Sw noted that she would call Enma back at [facility] to let her know that this Sw reached out to patient. Patient notes that would be helpful. Patient has provided verbal permission for this Sw to speak with Ms. Randolph. documented in this encounter [facility] 06-27-2022 Miscellaneous Notes 3rd attempt to reach patient with same message received that customer is unavailable. Letter sent to patient to call office. Since unable to reach patient via phone will need an appointment to discuss the need for MRI and other concerns. See Dr. Rodriguez message below for further information. Phone recording stating the wireless subscriber not available at this time and unable to leave a message. Andra Drummond LPN Tried calling Pt and the phone number goes to, The wireless customer you are trying to call is not available. . Will have to try calling again later. Called and left a message on daughter Janay's phone for Pt to call us back. May schedule a telephone visit, but she will need to know that will be limited in what can be ordered for further evaluation and treatment of some medical issues due to what would be needed to document for need for things like MRIs. With regards to thyroid, thought TSH is suppressed, T3 and T4 are okay. 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 Not sure if would qualify for Passport to get Aides through them. Pt states she is not able to come into apts because she can not walk and with the weather not able to get to her car. Has no help. Asking for a phone apt. May need to text her phone and have her call the [phone] number and get provider on the phone. Please reach out to pt. Milagros Stover LPN 3rd attempted to reach patient and still getting a message director external communications is unavailable to come to the phone. Letter sent asking patient to call office. Attempted to reach patient and received same message as below. Attempted to reach patient but recording stated that The wireless director external communications you are calling is not available please try again later. So for the new issues especially (worsening migraines and the lump on her jaw line) she really should be seen to have them evaluated and for us to decide on a treatment plan. If she does not want to see orthopaedics we could discuss some other options for management of her issues. Patient calls upset that she hasn't received results of x-rays of shoulders and knees. Notified patient we had made numerous attempts and was unable to reach patient. Reviewed message from provider as below. Patient reports transportation to orthopaedics is an issue so didn't want to be transferred to schedule. Patient reports she will not see endocrinology for hyperthyroidism. She took synthroid in the past and it caused kidney problems. Patient reports she currently takes Iodrol and Lugol's. Patient reports she forgot to mention to Dr. Rodriguez at her appointment that she continues to have migraines with ringing in her head and ears for past 2 years. She reports a lump to the left jaw line below her ear. She said it has been there for over a year and she has been requesting to have an MRI done at [facility] to rule out a tumor. Patient declining to schedule an appointment to address concern. She reports she is requesting a referral for an aide to come into the home to assist with light house work and cooking. 04/20/2022 TE notes patient has services through [facility] but difficulty with locating home care aides for patient. Maria Teresa Mo RN Message from 05/18/22 TE: Please call patient and let her know that her shoulder and knee xrays show arthritis related changes. Right knee with a small to moderate amount of fluid around it. It looks like she was referred to see orthopaedics so I recommend she follow up with ortho. Her blood work is over all stable with exception to her TSH which shows her thyroid is overactive. Has she been seeing endocrinology for hyperthyroidism and/or has she been on medication for this in the past? documented in this encounter [facility] 06-09-2022 Miscellaneous Notes Attempted to call Patient, Patient goes to unidentified , Janay/daughter goes to unidentified , number listed for Yesenia is not correct number, gentleman asked that office remove number, he has been getting her calls, Done. Bina Yu LPN Agree with ER if vision loss. May want to follow up with significant other / other contact noted in EPIC Protocol recommends ER Now or pcp triage. Advised patient protocol recommends ER now. Patient became angry and states there is no way I'm going to ER, just tell my doctor. Patient ended call. (When asking patient the questions, also asked patient if she would be able to come into doctors office today if there is an opening, patient stated, No she cannot come in). Reason for Disposition [1] Blurred vision or visual changes AND [2] present now AND [3] sudden onset or new (e.g., minutes, hours, days) (Exception: seeing floaters / black specks OR previously diagnosed migraine headaches with same symptoms) Answer Assessment - Initial Assessment Questions 1. DESCRIPTION: In past few days can't see small print, it's getting blurry and dark, feels pressure behind eyes, head feels stuffy like cement, eyes are filming up and everything is getting blurry. 2. LOCATION: Both eyes 3. SEVERITY: Constant. Right now can see everything but it is blurry. Can't focus on small words. 4. ONSET: Started a few days ago. Has been coming on slowly the past year. Increasing the past week. 5. PATTERN: Constant past few days. 6. PAIN: Pressure in eyes. 7. CONTACTS-GLASSES: Wears glasses for distance. Doesn't use them. They are in the car. 8. CAUSE: No idea. 9. OTHER SYMPTOMS: Pain, pressure, swelling in left side of head- states she told pcp at last appt. Feels confused at times. Gets migraines daily- takes nothing for these- won't take drugs- does not have migraine right now. Arms and legs are totally weak, can't turn w/c- this started when I started aging. No speech problems. No recent illness. Eating and drinking fine. 10. : No. Protocols used: Vision Loss or [id number] documented in this encounter [facility] 06-06-2022 Miscellaneous Notes I will close this encounter since others are open for this same concern, see other telephone encounter. Pt called in and she is requesting a phone apt not able to get into the clinic. Pt states she can not walk and has no help. Severe pain all over and the pressure is unbearable. She is not able to sleep but a couple hrs at night. Not able to get to her car due to the weather. Pt was instructed to call the squad not able to do because she would not be able to get back home. Requesting a phone apt. Please advise pt. May need to send a text message and she will need to call in. Her phone acts up. There are 2 other phone encounters open . Milagros Stover LPN Spoke with patient. Given message from provider's office. Patient verbalizes understanding. Scheduled appointment for patient on 05/13/22. She asked this nurse if she is able to get transportation to clinic would someone from clinic come out to car to bring her into clinic? Advised her that clinic employee is not able to do this. She verbalized understanding. Madeleine Vázquez RN Attempted to reach patient with no answer and unable to leave a message. I reviewed her other messages along with this. Unfortunately for a power wheelchair the patient often needs to be evaluated in the office to send documentation in to her insurance. They also often have forms they need completed. I recommend she contact insurance to find out specifics they may need. Also for her compression stockings I think it would be best to see her in the office for that too as it sounds like she has very specific ones she needs but also the reasons provided by patient will most likely not be covered by insurance so being seen in the office can help us determine a more specific diagnosis. She also expressed some issues with dizziness and that is going to need a further work up. I know it is not ideal for her to come in but sounds like that is going to be the best route. When trying to get her scheduled can we please try to get it set up for an in office visit to try and help Nakita as best as we can.Thank you!! Attempted to call pt on phone, got message saying wireless customer not available, unable to leave voicemail First attempt Cassandra Moser May 03, 2022 12:17 PM Pt received letter in mail and called the office. 1) dx why she needs support stockings due to injury to leg and bones keep going out in the other leg she uses to put backwards in wheel chair. Pt is bed ridden and can not walk. 2)the stockings she is in need of need to be like a diver suit material to be able to hold her bones in place. Her left knee will go left to right out of place. No nylon or tights will do. 3)request needs to go to [facility] ([facility]) PH: [phone] FAX: [phone] 4) pt requesting a phone apt because she is has dizzy spells, migraines and not sleeping very good. When apt is booked the doctor can not call from number she thinks is from [phone] not sure but this will not come thru on her phone. Please advise pt. Milagros Stover LPN Attempted to reach patient with no answer and unable to leave a message. Support stocking are used for leg swelling. Clarify reason wants/needs stockings since I need to find a code that would be covered by insurance. Pended a RX for what she has requested. Not sure how many are covered (if covered) so put 4. Also, usually the option for stockings is close toe or open toe--not sure have seen ones from ankle to thigh. The following approved medication requests have been transmitted electronically. Requested Prescriptions Pending Prescriptions Disp Refills Comp.Stocking,Thigh,Long,Small misc 6 Each 0 Sig: Wear stocking daily. Patient requests stockings with zipper; extending from ankle to thigh. Custom fit if no available length fits. Derian Rodriguez MD Pt calling again for a response from previous message below. See below. Sofie Gaxiola LPN Pt reports she needs stockings that cover ankle to thigh and they have to have zippers. Pt reports she has no way to get to an appt so would like a phone appt. Pt only wants appt with Dr. Rodriguez. Please review schedule. Call pt when order has been sent in and with appt. Dionne Caballero LPN Patient asking pcp to send order to [facility] for zip up high compression stockings for both legs. Reports she weighs 120 # and is 5'7 tall. Reports she needs more support for her legs in order to decrease pain and walk. documented in this encounter [facility] 05-20-2022 Miscellaneous Notes Patient calling and requesting recent lab results and xray results from 05/13/22 be mailed to her. Address on record has been verified as correct. Information submitted to contract mail carrier area. Chica Schroeder RN documented in this encounter [facility] 05-18-2022 Miscellaneous Notes Second attempt to contact patient by phone with line stating caller is not accepting calls at this time. Patient does not have set up to send message. Please try again later. DARSHAN Gilbert Pts phone says unavailable. Did not see number for GUNNAR Randolph that it says we can share medical information with. Will call again later. Please call patient and let her know that her shoulder and knee xrays show arthritis related changes. Right knee with a small to moderate amount of fluid around it. It looks like she was referred to see orthopaedics so I recommend she follow up with ortho. Her blood work is over all stable with exception to her TSH which shows her thyroid is overactive. Has she been seeing endocrinology for hyperthyroidism and/or has she been on medication for this in the past? documented in this encounter [facility] 05-13-2022 History of Presen t illness Narrative This note was created using GoCoopriter. Subjective Nakita Emerson is a 71 year old female. Patient presents with: Follow Up SUBJECTIVE: Nakita Emerson is a 71 year old year old lady here today for follow up appointment for review of medical conditions. Worsening pain. States heard a crack in her right leg when was trying to stand up from bed and fell back down. Wonders if migh have torn some ligaments. Swelling of right knee with instability of both knees. Cannot stand or sit up for long. not sleeping till 5AM. Pain prevents her from sleeping well. Tries pillow between legs. Pushes around in walker but only has wheels on 1 set.. Had to get around apartment because of old carpet. Trouble with doing laundry. Cannot get to laundromat. No help from family. Noted insects that had to pay to get exterminated. Noted hard to get in tub. Thirst at night and drinks water all night. Pulls up leak. States that fax for bed pads to [facility] was not received though sent 05/05 Wearing knee immobilizer to help with pain for left. Has knee brace on left as well--soft pull on. Feels like joins with a lot of movement. Shoulders cracking too. Losing weight. Not getting as much calories because of trouble cooking. Tender left side of scalp. Pain left jaw and gets swelling. Herbal tea and also green tea plus some cold coffee for migraines. Left migraines. Taking iodrol and lugols liquid iodine to help with thyroid and palpitations. Form for HUD Prefers to avoid RX meds. PAST MEDICAL HISTORY Diagnosis Date Atrial flutter (HCC) 06/15/2006 She has intermittent AF secondary to hyperthyroidism Bipolar disorder, unspecified (HCC) 06/15/2006 Esophageal reflux 05/09/2005 Graves disease Left Sided Sciatica 01/12/2010 Post-menopausal atrophic vaginitis presumed cause of incontinence Thyrotoxicosis without mention of goiter or other cause, without mention of thyrotoxic crisis or storm Toxic diffuse goiter without mention of thyrotoxic crisis or storm 05/09/2005 Grave's Disease, will only take oral medications (holistic) Unspecified asthma(493.90) Current Outpatient Medications Medication Sig Underpads 23 X 36 pads 1 Each three times daily as needed. Dx:(N95.2) Post-menopausal atrophic vaginitis; (R32) Urinary incontinence, unspecified type; (R15.9) Incontinence of feces, unspecified fecal incontinence type meloxicam (MOBIC) 7.5 mg tablet Take 1 tablet by mouth once daily. Take with food. levalbuterol tartrate HFA 45 mcg/actuation inhaler Inhale 1-2 Puffs as instructed every 4 hours as needed. (still has inhaler to use) potassium iodide (SSKI) 1 gram/mL solution 4 to 6 drops daily as directed cholecalciferol (VITAMIN D3) 5,000 unit tab Take 1 tablet by mouth once daily. multivit with minerals/lutein (MULTIVITAMIN 50 PLUS ORAL) Take by mouth. Diaper,Brief, Adult,Disposable (DISPOSABLE BRIEF) [facility] Pull ups (no diaper). Size TP 4525, small. Maximum absorbancy. Diagnoses: N95.2 Post menopausal atrophic vaginitis, R32 urinary incontinence unspecified type, R15.9 incontinence of feces unspecified fecal incontinence type. Diaper,Brief, Adult,Disposable (BRIEFS) misc Adult Diapers - Maximum absorbency, x-small/small size. Dx:(N95.2) Post-menopausal atrophic vaginitis; (R32) Urinary incontinence, unspecified type; (R15.9) Incontinence of feces, unspecified fecal incontinence type COMPOUNDED PRESCRIPTION Adult Diapers Sm-Med size (N95.2) Post-menopausal atrophic vaginitis; (R32) Urinary incontinence, unspecified type (R15.9) Incontinence of feces, unspecified fecal incontinence type; (E05.90) Hyperthyroidism coenzyme Q10 (COQ-10) 30 mg capsule Take 1 capsule by mouth once daily. COMPOUNDED PRESCRIPTION Super [place] supplement once daily No current facility-administered medications for this visit. Review of Systems Objective BP 122/78 Pulse 62 LMP 05/04/2005 SpO2 100% 05/13/22 1158 BP: 122/78 Pulse: 62 SpO2: 100% Physical Exam Constitutional: Appearance: Normal appearance. HENT: Head: Normocephalic. Eyes: Conjunctiva/sclera: Conjunctivae normal. Cardiovascular: Rate and Rhythm: Normal rate and regular rhythm. Heart sounds: Normal heart sounds. Pulmonary: Effort: Pulmonary effort is normal. Breath sounds: Normal breath sounds. Musculoskeletal: Right shoulder: Decreased range of motion. Left shoulder: Decreased range of motion. Right knee: Decreased range of motion. Left knee: Decreased range of motion. Skin: General: Skin is warm and dry. Neurological: General: No focal deficit present. Mental Status: She is alert and oriented to person, place, and time. Gait: Gait abnormal (antalgic). Psychiatric: Mood and Affect: Mood normal. Behavior: Behavior normal. Thought Content: Thought content normal. Judgment: Judgment normal. Assessment and Plan Encounter Diagnosis ICD-10-CM 1. Primary osteoarthritis involving multiple joints M15.9 XR SHOULDER GENERAL 3V OR MORE AP/TRUE AP/OTHER LEFT XR SHOULDER GENERAL 3V OR MORE AP/TRUE AP/OTHER RIGHT XR KNEE GENERAL 4V AP BOTH/PA BOTH/LAT/MERC BILATERAL 2. Graves disease E05.00 TSH BLD T4 FREE/FREE THYROX T3 FREE BLD 3. Gastroesophageal reflux disease without esophagitis K21.9 4. Primary insomnia F51.01 5. Chronic fatigue R53.82 COMP METABOLIC PANEL CBC 6. Screening, lipid Z13.220 LIPID PANEL, NONFASTING 7. Physical debility R53.81 8. Chronic pain of both knees M25.561 XR KNEE GENERAL 4V AP BOTH/PA BOTH/LAT/MERC BILATERAL M25.562 G89.29 9. History of financial difficulties Z87.898 10. Bipolar affective disorder, remission status unspecified (HCC) F31.9 No signs of lynn; does have depression symptoms that she attributes to her circumstances, especially due to pain and financial difficulties 11. Atrial flutter, unspecified type (HCC) I48.92 No acute episodes noted. Continue monitoring with current management Above issues addressed with patient. Patient involved in shared decision making for management of medical issues. History and medications reviewed. Epic updated as needed Refills and/or prescriptions taken care of and meds adjusted as indicated after reviewed history, exam and labs. Health Maintenance reviewed. Updated record and/or ordered tests as recorded. Continue present meds.Further evaluation and treatment as indicated. Encouraged on efforts at healthy diet and regular exercise and adequate sleep. Adjust med as indicated. Note that patient declines management of Grave's disease and hyperthyroidism by model builder display--did not tolerate tapazole and prefer iodin drops, though cost of her preferred OTC drops is too much for her to afford to stay on. Adjust dose as needed based on labs and symptoms. Noted issues with debility and finances. Continue trying to get her plugged in with resources. Referral to ortho as indicated and per patient preference for treatment. Derian Rodriguez MD documented in this encounter [facility] 05-09-2022 Miscellaneous Notes Faxed as requested. Patient calling to say [facility] tells her they did not receive script for bed pads. She is requesting script be re-faxed. [facility] fax number is [phone]. Madeleine Vázquez RN documented in this encounter [facility] 04-29-2022 Miscellaneous Notes Prescription sent to [facility] as requested. Printed Called [facility] ([facility]) fax number is [phone]. They need a printed prescription with dxs on it faxed to them. Any questions please call [phone]. Milagros Stover LPN Pt called back with a phone number to call for [facility]. The prescription for the bed pads will need to be sent to them. Pt did not have a fax number. Milagros Stover LPN Patient reports [facility] tell her they never received the bedpads order. Asking provider to please send the order to them again. documented in this encounter [facility] 04-25-2022 Miscellaneous Notes Noted Gunn[facility]. Gunnar noted that she would try call again to Ms. Randolph tomorrow 04/26 @10:30 to see what services that she is working on with patient. Sw called and spoke with patient in regards to below. Patient notes that she is not interested in home healthcare therapy. Patient reports that she is starting to consider AL options. Patient reports that she could use a motorized wheelchair/scooter. States not able to maneuver manual wheelchair. Patient notes that she is okay with this SW speaking with [facility]. Patient reports that Enma has been helping her coordinate services for her needs. [facility] noted that sh has been trying to locate home care aids but has not had any luck. Sw also asked patient about home delivered meals. Patient reports I do not eat Meals on Wheels meals as I only eat a vegan diet. Sw will reach out to [facility] to see what services they are working on coordinating for patient. Pt called in for a different issue and this nurse advised SW had tried to call her this morning and pt reports she did not receive any calls. Pt reports SW can try again. Dionne Caballero LPN [facility]. Jesse reports that she has been trying to locate a rn home health agency for patient, but has been unsuccessful. Jesse also notes that patient turned down meals on wheels services, as she did not care for the meals. Jesse reports that she did speak with patient about AL and patient had noted that she was not interested in AL options at this time. Jesse reports that she will continue to try to look for rn home health. Sw also has received a message from a [facility] in [place]. She notes ph. [phone]. Sw will check with patient and see if she is okay with Sw speaking with Ms. Randolph. Gunnar called patient to discuss above. Gunnar received message the wireless customer you are calling is unavailable. Are we looking at home healthcare/therapy for patient or just rn home health assistance?? Gunnar notes that patient has not had recent visit with Dr. Rodriguez or INES Brown. It does look like a virtual visit was scheduled but patient did not attend that visit. Sw spoke with patient and she reports that she is on the [employer] Program through [facility] and has Jesse as her medical case manager. Patient reports that [phone]-Jesse reports [facility] director of casework department. rent control office manager notes that she has not been able to locate rn home health for patient area. Sw notes that she will work [facility] see what is current plan for patient care needs. Patient asking about compression stockings. Patient reports needing tall zip up compression stockings. Noted has a hard time with mobility and has tried manual wheelchair, but has hard time maneuvering. Patient notes that she is not eligible for Medicare as she did not receive enough work credits. Patient notes that she she is on Medicaid. Patient reports that she has looked at Assisted Living options, but has found that most have a long wait list. Sw will mail out [employer] [facility]. Sw left [facility] to call this SW back to discuss patient car plan. Gunnar called patient to discuss social service assistance and patient needs. Gunnar received message that the wireless customer you are calling is not accepting calls at this time. Try call again later. Gunnar will try call again later. documented in this encounter [facility] 04-19-2022 Miscellaneous Notes SW consult placed Enma, who works in criminal justice social worker at [facility] [employer] calling to ensure provider was aware of patient's recent fall (which PCP office is aware of) as well as requesting patient have in-home services to assist her with laundry, cooking and cleaning as well as possible therapy. Patient information was not shared to caller, only message taken. It has been noted that patient did not answer phone for Virtual Appt today with Stephanie Yuen and patient still needs to schedule appt with orthopaedics. Informed caller that this would be need reviewed with patient and/or daughter as well. Chica Schroeder RN documented in this encounter [facility] 04-19-2022 Miscellaneous Notes Patients phone number is not in service. MyChart is pending too. Called patients emergency contact (daughter) to inform patient to call in to schedule consult to orthopedics. JENNIFER 04/19 Did not answer phone for appointment today. Seen at [facility] April 12, 2022 for knee injury. She came via EMS transferred. She has chronic knee pain. She reported when standing up and pivoting she felt a pop and sudden onset of worsening pain in her right knee. No fall. No other injury. Knee pain was mostly moderate sized and constant. Exam showed effusion of the right knee. Limited exam due to swelling and pain. She had good motion and perfusion distally. Imaging obtained. Showed some joint space narrowing osteophytes. No fracture or other acute bony abnormalities. She was placed in a knee immobilizer for comfort. She was advised to follow-up with orthopedic provider. Until seen by orthopedics she was provided with a short-term course of pain medication discharged home with family and knee immobilizer. Recommend orthopedic appointment at her earliest convenience if she has not already done so. Please schedule. Sent script for meloxicam, can take one daily with food if she would like for pain. Icing her leg and elevating when seated may help with pain and swelling. documented in this encounter [facility] 04-14-2022 Miscellaneous Notes Chux sent. Obtain ED records for review to determine if can do virtual visit -none noted for 04/12 at [place] Pt calling and states she is requesting bed pads prescription to be sent to her pharmacy in [facility]. She is using pulls but they leak. Pt having a bladder problem and not walking at this point and not sure if she will every walk again per pt. 1) bed pads 2) next apt asking if it can be a phone call. Pt does not have MyChart and can not drive ant at this point not sure when she would be able to come in. Please advise pt. Milagros Stover LPN . documented in this encounter [facility] 04-14-2022 Miscellaneous Notes rx pads sent Faxed order for wheelchair to [facility] at Phoned patient to notify of this. No answer. Voice message states the wireless number is not available. I ordered wheel chair but she should be able to move around with a crutch and A cane Pt called back to state she needs a wheel chair, pt states she can not walk & needs a wheelchair. Pt states she wants one that is small, lightweight & foldable. Will use [facility]. Please advise. Sofie Gaxiola LPN Pt states she was up & walking yesterday when something snapped in my leg . Pt states she had a great deal of pain, was taken by squad to [place] ED. Pt reports she has torn ligaments & has a leg cast. Pt states she has no way of getting up & around in her home, states she cant get out of bed & has no way to get to her food. Pt states she doesn't have any family or friends that can help her. Pt asking what she should do? She needs assistance. Please advise. Sofie Gaxiola LPN documented in this encounter [facility] 04-12-2022 Miscellaneous Notes Note information below. Pt states she is in so much pain & has been for a very long time, states pain is in her back & legs. Pt states she does not take anything for pain nor does she want to. States she has taken several different pain meds in the past & they are not effective so she doesn't take anything. Pt is requesting a referral to a retirement. Pt states Enma Randolph will be calling on her behalf, states Enma works for [employer] & is trying to help pt get placed in a retirement. Pt is asking to give Enma the information she needs. Sofie Gaxiola LPN documented in this encounter [facility] 03-03-2022 Miscellaneous Notes Patient has been identified by name and date of : Yes Requested Prescriptions Pending Prescriptions Disp Refills levalbuterol tartrate HFA 45 mcg/actuation inhaler Sig: Inhale 1-2 Puffs as instructed every 4 hours as needed. (still has inhaler to use) ARACELI-11/01/21 Labs-11/01/21 NOV-none RX INSTRUCTIONS: NOTE: PER PATIENT SHE SAID THE PHARMACY SAID SHE DOES NOT HAVE REFILLS ON LAST RX. PLEASE REFILL Patient aware RX will be sent to pharmacy. No need to notify patient. Berenice [facility] documented in this encounter [facility] 02-18-2022 Miscellaneous Notes restuarant crew worker has reached out to patient, letter mailed as she has not been able to reach out to patient. Called [facility], shower chair was delivered Sunday 01/28 to patient. Will follow-up on SSKI info 1) Check with [employer] what the issue is. If it is insurance requiring a Face to Face evaluation, then let patient know it is an insurance issue. 2) Consult Electrical Timing Device Calibrator filed as requested to help with resources. Financial issues but also mobility because of back and leg pin. Also depression with history of Grave's disease. 3) If a med is not covered by insurance, not sure what can be done about that. Can ask SW to help with this as well. Noted that May thyroid labs fine. I filed standing orders for thyroid labs so may check up to every 2 month as needed. Check with insurance what the cost of the SSKI is and if they have any alternatives to this. Patient was treated with other RX meds before but declined them and chose SSKI. See if patient saw [facility] Enrique [facility] before (model builder display)--if she had, could follow up with her and see what other options there are.. Let hs know if needs help coming in for appointments so can also work with SW on transportation issues if needed. Nakita Emerson is calling Derian Rodriguez MD today for 3 reasons: First, she never received her shower chair from [facility]; she is requesting someone check on this. She stated someone called her and told her she needs an appointment to see the doctor and she is very upset and mad, stated she cannot come in. Second, she needs a referral to a clinical social work aide consult to obtain information on what services are available to help her. Lastly, she needs the office to find out what she can do about obtaining iodine for her thyroid or other medication; the pharmacy is not helping her; they told her it is thousands of dollars. Please call patient regarding all 3 issues. Patient has been identified by name and birthdate. Duration of symptoms: Person calling: self Call patient at: at home [phone] (home) [phone] (cell) Was an appointment scheduled: No Closing statement: Results or non-symptom based questions: Thank you for calling [facility], your call will be returned within the next business day. Cris Kelly Pss documented in this encounter [facility] 02-11-2022 Miscellaneous Notes Sw wrote letter to patient letting patient know trying to reach her and have been unsuccessful. Sw noted direct number for any other questions or if she should need to reach out to SW for assistance. Sw called patient and received message the wireless customer you are calling is unavailable, try call again later. Sw tried call again to patient and received below message again. Will try call another time. Sw called patient to discuss community social service needs. No answer and message states wireless caller you are calling is temporarily unavailable, try call again later. Sw will try call another time. documented in this encounter [facility] 12-31-2021 Miscellaneous Notes rx faxed to [facility]. Called pt and no answer and unavailable to leave a message. ok shower chair. She can check with [facility] regarding her potassium iodide to see if they have an alternate available. Looks like she has gotten it there previously Patient Nakita called requesting a shower chair w/leg extensions for height. Please send to [facility]. Nakita was also checking if a replacement for her sski iodine is available, . documented in this encounter [facility] 11-04-2021 Miscellaneous Notes CALLED PT AGAIN WITH SAME RESPONSE. CALLED PTS DAUGHTER JANAY AND MESSAGE LEFT TO HER WITH THIS INFO THAT SAT APPT HAS BEEN CANCELLED SINCE PT WAS SEEN ALREADY THIS WEEK. Can you reach out to her daughter / patient contact to update her. This appt was arranged before she was seen 11/01/21 thinking the provider was not able to see pt. Pt arrived early on 11/01/21 and she was able to be seen. The 11/06/21 appt can be cancelled. Called pt to review but again she does not have this number([facility]) in her contacts so the call does not go through. Pt states she just received a text from [facility] stating she has appt scheduled for 11/06/21. Pt is asking why is is scheduled again when she was just seen yesterday? Pt states she was not told she was to come back. Pt states she is below poverty level & does not have money for gas to come for another appt. Please notify pt why she is scheduled. Sofie Gaxiola LPN documented in this encounter [facility] 11-01-2021 History of Presen t illness Narrative This note was created using [facility]. Subjective Nakita Emerson is a 71 year old female. Patient presents with: Follow Up SUBJECTIVE: Nakita Emerson is a 71 year old year old lady here today for follow up appointment for review of medical conditions. Dizziness--inability to walk Migraines--seems to be associated with pain left side of head with pressure and sometimes with vertigo Muscles give out on her Miserable Limited Independent with toileting. Lower back burning pain. Kidney area level. Still feels like jittery since does not have her SSKI. Stopped getting since could not get RX. Requested RX for pain med to have on hand for severe pain episodes. Hurts to walk. Gets pressure arms, spine and hips. Cannot carry anything heavy (gallon of water, purse) Legs sometimes itch bad. Can scratch till bleeds. Hears heart beat in head. Legs hurt and burn/ PAST MEDICAL HISTORY Diagnosis Date Atrial flutter (HCC) 06/15/2006 She has intermittent AF secondary to hyperthyroidism Bipolar disorder, unspecified (HCC) 06/15/2006 Esophageal reflux 05/09/2005 Graves disease Left Sided Sciatica 01/12/2010 Post-menopausal atrophic vaginitis presumed cause of incontinence Thyrotoxicosis without mention of goiter or other cause, without mention of thyrotoxic crisis or storm Toxic diffuse goiter without mention of thyrotoxic crisis or storm 05/09/2005 Grave's Disease, will only take oral medications (holistic) Unspecified asthma(493.90) Current Outpatient Medications Medication Sig levalbuterol tartrate HFA 45 mcg/actuation inhaler Inhale 1-2 Puffs as instructed every 4 hours as needed. (still has inhaler to use) multivit with minerals/lutein (MULTIVITAMIN 50 PLUS ORAL) Take by mouth. cholecalciferol (VITAMIN D3) 5,000 unit tab Take 1 tablet by mouth once daily. Diaper,Brief, Adult,Disposable (DISPOSABLE BRIEF) [facility] (no diaper). Size TP 4525, small. Maximum absorbancy. Diagnoses: N95.2 Post menopausal atrophic vaginitis, R32 urinary incontinence unspecified type, R15.9 incontinence of feces unspecified fecal incontinence type. Diaper,Brief, Adult,Disposable (BRIEFS) [facility] [place] Adult Diapers - Maximum absorbency, x-small/small size. Dx:(N95.2) Post-menopausal atrophic vaginitis; (R32) Urinary incontinence, unspecified type; (R15.9) Incontinence of feces, unspecified fecal incontinence type COMPOUNDED PRESCRIPTION Adult Diapers Sm-Med size (N95.2) Post-menopausal atrophic vaginitis; (R32) Urinary incontinence, unspecified type (R15.9) Incontinence of feces, unspecified fecal incontinence type; (E05.90) Hyperthyroidism coenzyme Q10 (COQ-10) 30 mg capsule Take 1 capsule by mouth once daily. COMPOUNDED PRESCRIPTION [employer] [place] supplement once daily No current facility-administered medications for this visit. Review of Systems Objective BP 120/72 Pulse 80 Wt 68.9 kg (152 lb) LMP 05/04/2005 BMI 25.29 kg/m Physical Exam Constitutional: Appearance: Normal appearance. HENT: Head: Normocephalic. Eyes: Conjunctiva/sclera: Conjunctivae normal. Cardiovascular: Rate and Rhythm: Normal rate and regular rhythm. Heart sounds: Normal heart sounds. Pulmonary: Effort: Pulmonary effort is normal. Breath sounds: Normal breath sounds. Skin: General: Skin is warm and dry. Neurological: General: No focal deficit present. Mental Status: She is alert and oriented to person, place, and time. Motor: Weakness present. Psychiatric: Mood and Affect: Mood normal. Behavior: Behavior normal. Thought Content: Thought content normal. Judgment: Judgment normal. Assessment and Plan ASSESSMENT/PLAN: 1. Dysuria - ICD9: 788.1, ICD10: R30.0 (primary diagnosis) acute - Patient education for prevention given Push fluids and treat accordingly - URINALYSIS, WITH MICROSCOPIC - URINE CULTURE 2. Vitamin D deficiency - ICD9: 268.9, ICD10: E55.9 Had been low. Increase replacement as indicatd - VITAMIN D 25 HYDROXY 3. Encounter for long-term current use of medication - ICD9: V58.69, ICD10: Z79.899 - BASIC METABOLIC PNL 4. Graves disease - ICD9: 242.00, ICD10: E05.00 Further evaluation and treatment as indicated. She prefers to take potassium drops. Declines traditional meds. - TSH BLD - T4 FREE/FREE THYROX - T3 FREE BLD 5. IFG (impaired fasting glucose) - ICD9: 790.21, ICD10: R73.01 Further evaluation and treatment as indicated. Worries has DM because has itching of legs. - HGB A1C - BASIC METABOLIC PNL 6. Myalgia - ICD9: 729.1, ICD10: M79.10 Further evaluation and treatment as indicated. - C-REACTIVE PROTEIN (CRP) - CK CREATINE KINASE 7. Polyarthralgia - ICD9: 719.49, ICD10: M25.50 Further evaluation and treatment as indicated. - C-REACTIVE PROTEIN (CRP) 8. Acute left-sided low back pain without sciatica - ICD9: 724.2, ICD10: M54.50 Discussed has chronic pain but sometimes gets acutely severe and needs percocet. Pain med RX lasts several months - OXYCODONE-ACETAMINOPHEN 5 MG-325 MG TABLET 9. Chronic pain of both knees - ICD9: 719.46, 338.29, ICD10: M25.561, M25.562, G89.29 As noted above - OXYCODONE-ACETAMINOPHEN 5 MG-325 MG TABLET 10. Chronic bilateral low back pain with left-sided sciatica - ICD9: 724.2, 724.3, 338.29, ICD10: M54.42, G89.29 Continue present management. Further evaluation and treatment as indicated. - OXYCODONE-ACETAMINOPHEN 5 MG-325 MG TABLET Derian Rodriguez MD documented in this encounter [facility] 11-01-2021 Miscellaneous Notes pt is here now. No need to reschedule appt. called pt twice this am to RESCHEDULE APPT TODAY TO SEE PCP 11/06/21. No answer and unable to leave a message. Doesn't look like at this time pt has called back in. Called to verify appt with pcp 11/01/21 with no answer and unable to leave a message. Noted Sw called to speak with patient about [employer] referral for passport. No answer and message states wireless customer you are calling is not available, please try call again later. Sw will try call another time. APPT WITH PCP 11/01/21 AT 1020 AM ARRANGED. Sw can speak with patient and see if she is open to referral to [employer] referral for passport program ie. Home care assistance, home delivered meals, medical alert button. See below message. Pt asking to see Dr Rodriguez only. States she has multiple issues to discuss, arthritis pain, muscle problems where she drops to the floor, daily migraines (pt states she is afraid she has an aneurysm or tumor or something going on). PSS said no avail appts with pcp for a couple mths. Please advise. Sofie Gaxiola LPN Asking our clinical social work aide to see if there is something she can do to help. Pt to call her insurance territory manager? Patient is requesting a state plan for a home healthcare aide. She states she is no longer able to walk She is frequently dizzy and falls. She also states she needs assistance with daily care. Patient is also asking for any homecare supplies, but could not be specific. Asked patient if she would like to schedule an appointment and she does not want to see anyone but Dr. Rodriguez. No appointments available within the next few months. She said she could do a phone visit if that would suffice. Please contact patient. [phone] documented in this encounter [facility] 11-01-2021 Miscellaneous Notes Sw tried to call patient about Dr. Rodriguez needing to see about patient rescheduling her appt this morning to Monday @11:20. No answer no vmail to leave message. Phone states wireless calling you are calling is unavailable. Noted Sw spoke with patient and she reports that she is having someone come to see her next 11/03/21 fo passport assessment. Patient reports that she has had Passport assessment in the past and did not qualify. Not sure if she will qualify now but open to the coming out to see her. Patient notes that she is aware that she has Dr. Rodriguez appt on Monday and see what she has to say about patient healthcare needs. Patient noted that she is never go to a prison facility stating that she would do myself in before I would go to one of those facilities. Sw noted that she would send note to Dr. Rodriguez so that she is aware of passport/direction home going out to see patient. Patient also noted that she is aware and will be at her Monday11/01/21 @10:[address] Rodriguez. Sw noted that she would follow up with Dr. Rodriguez and patient next week after their visit to see what further assistance SW can provide to patient. documented in this encounter [facility] 10-04-2021 Miscellaneous Notes addressed in another encounter today Patient is calling requesting lab results from 10/01. Please return call to patient. documented in this encounter [facility] 10-04-2021 Miscellaneous Notes TC to patient who is irate at the providers message. She began yelling that they have no idea what they are talking about I have a tumor in my head, not vertigo. I am so sick of these people ignoring my symptoms Patient then hung up the phone without listening to the rest of providers message. DARSHAN Gilbert Can you please call the patient and let her know that I reviewed her lab results. Her labs were relatively normal, glucose was slightly elevated. Urine came back with negative for bacterial growth. Vitamin D results are still pending. I see no causes for her symptoms, as discussed during office visit I do think she has BPPV. I would recommend that she continue to do at home exercises and follow-up with her PCP. Please let me know if she has any questions. Thank you. Karla Tello APRN.CNP documented in this encounter [facility] 10-01-2021 Miscellaneous Notes The following approved medication requests have been transmitted electronically. Pending Prescriptions Disp Refills LEVALBUTEROL HFA 45 MCG/ACTUATION AEROSOL INHALER 1 Inhaler 5 Sig: Inhale 1-2 Puffs as instructed every 4 hours as needed. (still has inhaler to use) ZINA: No Karla Tello APRN.CNP The following approved medication requests have been transmitted electronically. Pending Prescriptions Disp Refills LEVALBUTEROL HFA 45 MCG/ACTUATION AEROSOL INHALER 1 Inhaler 5 Sig: Inhale 1-2 Puffs as instructed every 4 hours as needed. (still has inhaler to use) ZINA: No Karla Tello APRN.CNP Unable to close this encounter as meds are attached and patient was scheduled for today with Karla Tello in [facility]. Pt cancelled Jul follow up please call pt to reschedule appt. Patient is also requesting SSKI, which I do not see on her list. Please send to the [facility] in [place]. Patient is having trouble getting her inhaler. Unsure if PA is needed or what the issue is. She said the pharmacy was supposed to contact us to figure it out. Pharmacy verified in Epic Patient has been identified by name and date of : Yes Patient aware RX will be sent to pharmacy. No need to notify patient. Patient phones for refill(s): Pending Prescriptions Disp Refills LEVALBUTEROL HFA 45 MCG/ACTUATION AEROSOL INHALER 1 Inhaler 5 Sig: Inhale 1-2 Puffs as instructed every 4 hours as needed. (still has inhaler to use) ZINA: No Date of last office visit : 02/13/2021 Date of next office visit : Visit date not found Last 2 Encounter Wt Readings: Date: Wt: 02/13/2021 68.5 kg (151 lb) 11/30/2020 76.7 kg (169 lb) Please advise. Olivia Salcedo documented in this encounter [facility] 10-01-2021 Instructions Karla Tello APRN.POWDER NIPPER - 10/01/2021 10:15 AM EDT Images from the original note were not included. 1.) Get labs completed from PCP 2.) Your dizziness is consistent with BPPV vertigo. 3.) Recommend at home exercise to help improve this. 4.) Recommend scheduling appointment with Dr to go over lab results. Benign Paroxysmal Positional Vertigo (BPPV) What is BPPV? Benign Paroxysmal Positional Vertigo (BPPV) is an inner ear disorder in which changes to the position of the head, such as tipping the head backward, lead to sudden vertigo -- a feeling that the room is spinning. Vertigo can vary in intensity from mild to severe and usually lasts only a few minutes. It may be accompanied by other symptoms, including dizziness lightheadedness a sense of imbalance nausea vomiting Anatomy of the right inner ear. Particle repositioning therapy moves the otoconia out of the semicircular canals and into the utricle where they dissolve naturally. BPPV is not a sign of a serious problem, and it usually disappears on its own within 6 weeks of the first episode. However, the symptoms of BPPV can be very frightening and may be dangerous, especially in older individuals. The unsteadiness associated with BPPV can lead to falls. About half of all people over age 65 experience an episode of BPPV, and falls are a leading cause of fractures in this age-range. What causes BPPV? BPPV develops when calcium carbonate crystals, which are known as otoconia, shift into and become trapped within the semicircular canals (one of the vestibular organs of the inner ear that controls balance). The otoconia make up a normal part of the structure of the utricle, a vestibular organ next to the semicircular canals. (see illustration to the right.) In the utricle, the otoconia may be loosened as a result of injury, infection, or age, and they land in a sac -- the utricle -- where they are naturally dissolved. However, otoconia in the semicircular canals will not dissolve. As a person s head position changes, the otoconia begin to roll around and push on the tiny hairs that line the semicircular canals. Those hairs act as sensors to give the brain information about balance. Vertigo develops when the hairs are stimulated by the rolling otoconia. What head positions trigger BPPV? Movements that can trigger an episode of BPPV include rolling over or sitting up in bed, bending the head forward to look down, or tipping the head backward. In most people, only a single ear is affected by BPPV, although both ears may be involved on occasion. How is BPPV diagnosed and treated? With advances in medical technology, BPPV can easily be diagnosed and treated. The diagnosis can usually be made in the office based on medical history and a physical exam. Treatment also involves a short, simple in-office procedure known as the particle repositioning maneuver. (See addendum below.) How can I identify the affected side? Steps to determine affected side: 1. Sit on bed so that if you lie down, your head hangs slightly over the end of the bed. 2. Turn head to the right and lie back quickly. 3. Wait 1 minute. 4. If you feel dizzy, then the right ear is your affected ear. 5. If no dizziness occurs, sit up. 6. Wait 1 minute. 7. Turn head to the left and lie back quickly. 8. Wait 1 minute. 9. If you feel dizzy, then the left ear is your affected ear. Right position Left position How successful is the treatment? A single particle repositioning procedure is effective in treating about 80% to 90% of cases of BPPV. Additional exercise or repositioning maneuvers may be needed if symptoms persist. Can BPPV recur? If so, what can I do? A new episode of BPPV can develop after successful treatment -- on average there is a 15 percent rate of recurrence each year. However, it may be possible to treat recurrent BPPV at home by performing a series of movements at the time an episode occurs. Patients will receive information on ways to handle recurrences on their own or they can work with a physical therapist to develop a plan. In general, if you wake up with positional vertigo, slowly move into the [id number] position and wait for a minute. Next, slowly move into a face-down position and slide to the foot of the bed. Keep your head down until you reach the end of the bed and are kneeling or standing on the floor. Slowly bring your head backward into an upright position. Hold on to the bed at all times. Another method is to sit toward the foot of the bed, leaving enough room to lay back with your head resting comfortably at the end of the bed, slightly extended. Be careful not to overextend your neck, as this may aggravate existing neck problems. If your symptoms are severe, you may need assistance to complete the maneuver. Follow the same steps as described in the boxed instructions on the next page. Without treatment, the symptoms of BPPV may worsen. However, with time, the otoconia dissolve on their own, which is usually within 6 weeks. Until the time the otoconia dissolve on their own, the number and severity of episodes may be reduced simply by paying careful attention to head position. In addition, anti-motion sickness drugs can be given to control nausea. However, before drugs are taken, it is usually best to try the particle repositioning procedure first. It is a very safe and rapid way to relieve symptoms and reduce the chance for falls. Medications should not be taken for a long period of time. ADDENDUM Particle repositioning procedure: [id number] instructions The particle repositioning procedure takes about 15 minutes to complete and involves a series of physical movements that change the position of the head and body. These actions shift the otoconia out of the semicircular canals and back into their proper location in the utricle. The particle repositioning procedure begins with the patient is sitting up and then lying down on a treatment table. The procedure is very easy to perform. Patients should wear comfortable clothing that will allow them to move freely. Hold each of the following positions for 1 to 2 minutes. Step 1: Turn your head toward your affected ear. Step 2: Lay back quickly. Hold. Step 3: Keep your head back against the bed and turn it toward the good ear. Hold. Step 4: Roll onto your side with your good ear down. Your nose should be turned toward the floor. Hold. Step 5: Sit up, keeping your chin tucked in toward your shoulder. Hold. When you end, you should be sitting over the side of your bed so your feet touch the floor. Step 6: Follow your post-particle repositioning instructions. BPPV: Glossary of Terms Semicircular canals: These structures act like a gyroscope, with canals positioned in three dimensions -- upward, downward, and horizontal. Together, the canals send signals to the brain about the rotation/positioning of the head (for example, when you bend over or spin around.) Cupula: Detects the flow of fluid within the semicircular canals. The flow of fluid gives the body a sense of motion. Utricle: An organ located in the inner ear that helps control balance. The utricle contains hair cells, which are covered with otoconia. The otoconia sway with gravity, sending signals to the brain about the position of the head and body (upright, tilted, etc). Otoconia: The tiny calcium crystal particles that become dislodged from within the utricle (where they can dissolve) and move into the semicircular canals (where they can t dissolve). Cochlea: The 'snail-shell' sense organ of the inner ear that translates sound into nerve impulses and sent to the brain. References Gracia BT, Alfnoso LB. Jacinto ALEXANDER. Peripheral Vestibular Disorders. In: [facility] Head [facility]ck [facility], 3-Volume Set. Rashid; 2014. Katie Rivas. Benign Paroxysmal Positional Vertigo (BPPV): History, Pathophysiology, Office Treatment and Future Directions. International Journal of Otolaryngology. 2011;2011:805207. Maranda JS, Nataliia MARTINEZ. Clinical practice. Benign paroxysmal positional vertigo. N Engl J Med. 2013Sep 05;370(12):1138-47. Abilio Christie DD, Maddie Kohli. The Head and Neck. In: Abilio Christie DD, Rubi Matthews, Maddie VILLARREAL. eds. Portia torres Diagnostic Examination, 10e. [place], [place]: [facility]; 2015. Copyright 7756-4613 The [facility]. All rights reserved This information is provided by the [facility] and is not intended to replace the medical advice of your doctor or health care provider. Please consult your health care provider for advice about a specific medical condition. For additional health information, please contact the [facility] for Consumer Health Information at the [facility] or toll-free extension [phone]. If you prefer, you may visit [email or web address] or [email or web address]. This document was last reviewed on: 2014 documented in this encounter [facility] 10-01-2021 History of Presen t illness Narrative This is a 71 year old female who presents today with: Patient presents with: Dizziness: loss of balance Fatigue HISTORY OF PRESENT ILLNESS: Nakita Emerson is a 71 year old female. Patient presents with: Dizziness: loss of balance Fatigue Patient of Dr. Rodriguez here in the office for concerns for dizziness. Has been happening over the past year, seems to be getting progressively worse. Room will spin. No LOC. Notices symptoms when rolling over in bed, changing position, and when looking a certain direction. Symptoms usually happening every couple of days but seem to be more constant. No chest pain, palpitations, or NV. Last EKG that was completed in November 2020 was normal sinus rhythm. On going fatigue for the past year as well. Feels like she is so tired she can't leave the house. Lab orders are currently in from PCP that need completed. PAST MEDICAL HISTORY: PAST MEDICAL HISTORY Diagnosis Date Atrial flutter (HCC) 06/15/2006 She has intermittent AF secondary to hyperthyroidism Bipolar disorder, unspecified (HCC) 06/15/2006 Esophageal reflux 05/09/2005 Graves disease Left Sided Sciatica 01/12/2010 Post-menopausal atrophic vaginitis presumed cause of incontinence Thyrotoxicosis without mention of goiter or other cause, without mention of thyrotoxic crisis or storm Toxic diffuse goiter without mention of thyrotoxic crisis or storm 05/09/2005 Grave's Disease, will only take oral medications (holistic) Unspecified asthma(493.90) PAST SURGICAL HISTORY Procedure Laterality Date LIGATE FALLOPIAN TUBE 1986 Tubal ligation PULMONARY FUNCTION TEST 08/19 ALLERGIES Amoxicillin, Carafate [Sucralfate], Accolate [Zafirlukast], Ambien [Zolpidem Tartrate], Azithromycin, Celebrex [Celecoxib], Penicillins, Red Dye, Singulair [Montelukast Sodium], and Sulfa (Sulfonamide Antibiotics) MEDICATIONS Current Outpatient Medications Medication Sig levalbuterol tartrate HFA 45 mcg/actuation inhaler Inhale 1-2 Puffs as instructed every 4 hours as needed. (still has inhaler to use) multivit with minerals/lutein (MULTIVITAMIN 50 PLUS ORAL) Take by mouth. cholecalciferol (VITAMIN D3) 5,000 unit tab Take 1 tablet by mouth once daily. Diaper,Brief, Adult,Disposable (DISPOSABLE BRIEF) [facility] [place] Pull ups (no diaper). Size TP 4525, small. Maximum absorbancy. Diagnoses: N95.2 Post menopausal atrophic vaginitis, R32 urinary incontinence unspecified type, R15.9 incontinence of feces unspecified fecal incontinence type. Diaper,Brief, Adult,Disposable (BRIEFS) [facility] [place] Adult Diapers - Maximum absorbency, x-small/small size. Dx:(N95.2) Post-menopausal atrophic vaginitis; (R32) Urinary incontinence, unspecified type; (R15.9) Incontinence of feces, unspecified fecal incontinence type COMPOUNDED PRESCRIPTION Adult Diapers Sm-Med size (N95.2) Post-menopausal atrophic vaginitis; (R32) Urinary incontinence, unspecified type (R15.9) Incontinence of feces, unspecified fecal incontinence type; (E05.90) Hyperthyroidism coenzyme Q10 (COQ-10) 30 mg capsule Take 1 capsule by mouth once daily. COMPOUNDED PRESCRIPTION Super [place] supplement once daily No current facility-administered medications for this visit. FAMILY HISTORY Problem Relation Age of Onset None Mother other (Unknown [Other]) Father None Brother other (Hepatitis C [Other]) Brother None Sister None Sister Social History Tobacco Use Smoking status: Never Smoker Smokeless tobacco: Never Used Substance Use Topics Alcohol use: No Drug use: No REVIEW OF SYSTEMS GENERAL: No weight loss, malaise or fevers/chills HEENT: Negative for frequent or significant headaches, No changes in hearing or vision. NECK: Negative for lumps, goiter, pain and significant neck swelling RESPIRATORY: Negative for cough, hemoptysis, wheezing, dyspnea or shortness of breath CARDIOVASCULAR: Negative for chest pain, leg swelling, orthopnea, or palpitations GI: No nausea, vomiting, or diarrhea/constipation. No hematochezia/melena. No heartburn or reflux symptoms. : No history of dysuria, frequency or incontinence MUSCULOSKELETAL: Negative for joint pain or swelling. SKIN: Negative for lesions, rash, and itching ENDOCRINE: Negative for cold or heat intolerance, polyuria, polydipsia and goiter NEURO: + Dizziness MOOD: Negative for depression, anxiety, or suicidal ideation. EXAM: BP 118/78 Pulse 70 Resp 20 Wt 72 kg (158 lb 12.8 oz) LMP 05/04/2005 SpO2 97% BMI 26.43 kg/m PHYSICAL EXAM: General Appearance: Well appearing, alert, in no acute distress, well-hydrated, well nourished.. Skin: Skin color, texture, turgor normal, no suspicious rashes or lesions. Head: Normocephalic, no masses, lesions, tenderness or abnormalities. Eyes: Anicteric sclera. Pupils are equally round and reactive to light. Extraocular movements are intact. . Ears: External ears normal, canals clear. Lungs: Lungs clear to auscultation. No wheezing, rhonchi, rales.. Heart: RRR without murmur, gallop, or rubs. No ectopy. Extremities: No deformities, edema, skin discoloration, clubbing or cyanosis. Good capillary refill. . Peripheral Pulses: Normal, Capillary refill <2secs, strong peripheral pulses, Pulses palpable. Neurologic: Gait with a limp, using wheelchair. Reflexes normal and symmetric. Sensation grossly intact. + rowena quinn pike right side. No nystagmus. ASSESSMENT/PLAN: 1. BPPV (benign paroxysmal positional vertigo), unspecified laterality - ICD9: 386.11, ICD10: H81.10 (primary diagnosis) - Symptoms distant with BPPV. - + [place] Quinn Blair - Recommend at home exercises to help resolve symptoms. Instructions and education provided. - Explained to the patient that vestibular physical therapy may be necessary if symptoms do not resolve with at home exercises. 2. Fatigue, unspecified type - ICD9: 780.79, ICD10: R53.83 - Instructed patient to complete lab orders from PCP as well as B12. - Recommend scheduling a follow-up appointment with PCP to go over lab results and to discuss any further concerns that she has. - VITAMIN B12 BLOOD Follow-up in 2 weeks or sooner as needed. Discussed treatment plan and patient voices understanding. Patient's questions answered appropriately. Medications and potential side effects were discussed and patient voices understanding. Karla Tello APRN.NAGA This note was partially generated using [employer] W[employer] voice recognition system. Note was reviewed for accuracy. There may be minor misspellings or grammar miscues with [employer] voice recognition. documented in this encounter [facility] 09-29-2021 Miscellaneous Notes Sent to triage nurse. Triage completed. Nakita Emerson is calling Derian Rodriguez MD today with concern regarding having dizzy spells and feeling exhausted. Patient feels as if she is having heart palpations for the last few weeks. When calling the patient, it is very hard to hear her. I got most of the information I could because of the bad connection. Nurse Triage Call Patient has been identified by name and birthdate. Duration of symptoms: few weeks Person calling: self Call patient at: on cell [phone] (home) [phone] (cell) Was an appointment scheduled: No Closing statement: Symptom Call: Thank you for calling [facility], your call is very important. A nurse will call in approximately 2-4 hours during business hours. If this is an emergency, please contact 911. Sylvia Oliver documented in this encounter [facility] 09-29-2021 Miscellaneous Notes Spoke with patient. See triage protocol note. Madeleine Vázquez RN documented in this encounter [facility] 09-29-2021 Miscellaneous Notes Triage protocol guidelines reviewed with patient. Disposition: See PCP within 24 hours. Next day appointment offered and patient declined. She requested Monday appointment. Scheduled. Madeleine Vázquez RN GO TO THE EMERGENCY ROOM OR CALL 911 IF: * You develop any new symptoms * Your condition worsens * You are concerned or anxious about your condition for any other reason. If you have any questions, you can call Nurse paediatric surgeon back. Reason for Disposition [1] MODERATE dizziness (e.g., vertigo; feels very unsteady, interferes with normal activities) AND [2] has NOT been evaluated by physician for this Answer Assessment - Initial Assessment Questions 1. DESCRIPTION: Everything is spinning 2. VERTIGO: When I stand up the room is tilting 3. LIGHTHEADED: feels weak when she stands up 4. SEVERITY - MODERATE: Feels very unsteady when walking, but not falling; interferes with normal activities (e.g., school, work) . 5. ONSET: Months ago 6. AGGRAVATING FACTORS: turning head, standing up 7. CAUSE: unknown 8. RECURRENT SYMPTOM: Does not think she has had this in the past 9. OTHER SYMPTOMS: migraine headaches Protocols used: DIZZINESS - [id number] documented in this encounter [facility]* Diagnosis Dysuria- Primary Vitamin D deficiency Unspecified vitamin D deficiency Encounter for long-term current use of medication Graves disease Toxic diffuse goiter without mention of thyrotoxic crisis or storm IFG (impaired fasting glucose) Impaired fasting glucose Myalgia Mylagia and myositis, unspecified Polyarthralgia Pain in joint, multiple sites Acute left-sided low back pain without sciatica Chronic pain of both knees Chronic bilateral low back pain with left-sided sciatica [facility]* Diagnosis Encounter for screening mammogram for breast cancer documented in this encounter [facility] note* Diagnosis Left sided sciatica- Primary Sciatica Pain in joint involving pelvic region and thigh, unspecified laterality Myalgia Mylagia and myositis, unspecified Polyarthralgia Pain in joint, multiple sites Chronic pain of both knees Chronic bilateral low back pain with left-sided sciatica documented in this encounter [facility] note* Diagnosis History of financial difficulties- Primary Primary osteoarthritis of both hips Primary localized osteoarthrosis, pelvic region and thigh Chronic bilateral low back pain with left-sided sciatica Mild intermittent asthma, uncomplicated Unspecified asthma Bipolar affective disorder, remission status unspecified (HCC) Graves disease Toxic diffuse goiter without mention of thyrotoxic crisis or storm documented in this encounter [facility] note* Diagnosis Sprain of ligament of left ankle, initial encounter- Primary documented in this encounter [facility] note* Diagnosis Injury of right knee, subsequent encounter- Primary [facility]* Diagnosis Primary osteoarthritis involving multiple joints- Primary Graves disease Toxic diffuse goiter without mention of thyrotoxic crisis or storm Gastroesophageal reflux disease without esophagitis Esophageal reflux Primary insomnia Persistent disorder of initiating or maintaining sleep Chronic fatigue Other malaise and fatigue Screening, lipid Screening for lipoid disorders Physical debility Debility, unspecified Chronic pain of both knees History of financial difficulties Bipolar affective disorder, remission status unspecified (HCC) Atrial flutter, unspecified type (HCC) [facility]* Diagnosis Pain, dental- Primary Unspecified disorder of the teeth and supporting structures Dysuria Hyperthyroidism Thyrotoxicosis without mention of goiter or other cause, without mention of thyrotoxic crisis or storm Encounter for therapeutic drug monitoring documented in this encounter [facility] for referral (narrative)* Diagnostic Procedure Only (Routine) - Pending Review Specialty Diagnoses / Procedures Referred By Rylee colindres Referred To Contact [facility] Diagnoses Encounter for screening mammogram for breast cancer Procedures BRENDA SCREENING SCREENING MAMMOGRAPHY BI 2-VIEW BREAST INC CAD Derian Rodriguez MD [address] [place] [address] [facility] [address] [place] [address] Referral ID Status Reason Start Date Expiration Date Visits Requested Visits Authorized [id number] Pending Review Auto-Generat ed Referral 12/15/2021 01/14/2023 1 1 [facility] for referral (narrative)* Diagnostic Procedure Only (Routine) - Closed Specialty Diagnoses / Procedures Referred By Contac t Referred To Contact XR IMAGING Diagnoses Primary osteoarthritis involving multiple joints Chronic pain of both knees Procedures XR KNEE GENERAL 4V AP BOTH/PA BOTH/LAT/MERC BILATERAL RADIOLOGIC EXAM KNEE COMPLETE 4/MORE VIEWS Derian Rodriguez MD [address] [place] [address] Xr Imaging Referral ID Status Reason Start Date Expiration Date V isits Requested Visits Authorized [id number] Closed Auto-Generate d Referral 05/13/2022 06/12/2023 1 1 * Diagnostic Procedure Only (Routine) - Closed Specialty Diagnoses / Procedures Referred By Contac t Referred To Contact XR IMAGING Diagnoses Primary osteoarthritis involving multiple joints Procedures XR SHOULDER GENERAL 3V OR MORE AP/TRUE AP/OTHER RIGHT RADEX SHOULDER COMPLETE MINIMUM 2 VIEWS Derian Rodriguez MD [address] [place] [address] Xr Imaging Referral ID Status Reason Start Date Expiration Date V isits Requested Visits Authorized [id number] Closed Auto-Generate d Referral 05/13/2022 06/12/2023 1 1 * Diagnostic Procedure Only (Routine) - Closed Specialty Diagnoses / Procedures Referred By Contac t Referred To Contact XR IMAGING Diagnoses Primary osteoarthritis involving multiple joints Procedures XR SHOULDER GENERAL 3V OR MORE AP/TRUE AP/OTHER LEFT RADEX SHOULDER COMPLETE MINIMUM 2 VIEWS Derian Rodriguez MD [address] [place] [address] Xr Imaging Referral ID Status Reason Start Date Expiration Date V isits Requested Visits Authorized [id number] Closed Auto-Generate d Referral 05/13/2022 06/12/2023 1 1 [facility] Summary Purpose Family History No Family History Records FoundNo Family History Records FoundNo Family History Records FoundNo Family History Records Found Advance Directives No Advanced Directives Records FoundDocuments on File Type Date 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 Advance Directive(s) Advance Directive(s) 11/30/2020 9:48 AM Advance Directive(s) 03/16/2019 6:04 PM Advance Directive(s) 12/13/2018 6:39 AM Documents on File Type Date Recorded 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 Advance Directive(s) Advance Directive(s) 11/30/2020 9:48 AM Advance Directive(s) 03/16/2019 6:04 PM Advance Directive(s) 12/13/2018 6:39 AM Reason for Referral Specialty Diagnoses / Procedures Referred By Contac t Referred To Contact Diagnoses History of financial difficulties Primary osteoarthritis of both hips Chronic bilateral low back pain with left-sided sciatica Mild intermittent asthma, uncomplicated Bipolar affective disorder, remission status unspecified (HCC) Graves disease Procedures PRIMARY CARE SOCIAL WORK CONSULT Derian Rodriguez MD [address] [place] [address] [facility] [address] [place] [address] Referral ID Status Reason Start Date Expiration Date Visits Requested Visits Authorized [id number] Ref Not Required PCP Requested Referral 01/27/2022 04/27/2022 1 1 Specialty Diagnoses / Procedures Referred By Contac t Referred To Contact Dentistry Diagnoses Pain, dental Procedures CONSULT TO DENTISTRY OFFICE/OUTPATIENT [facility] 60-74 MINUTES Desi Jamil APRN.POWDER NIPPER [address] [place] [address] Referral ID Status Reason Start Date Expiration Date Visits Requested Visits Authorized [id number] Pending Review PCP Requested Referral 02/28/2023 02/28/2024 1 1 Additional Source Comments INFORMATION SOURCE (unrecogn ized section and content) DATE CREATED AUTHOR AUTHOR'S ORGANIZ ATION 03/19/2019 [facility] DATE CREATED AUTHOR AUTHOR'S ORGANIZ ATION 02/27/2023 [facility] DATE CREATED AUTHOR AUTHOR'S ORGANIZ ATION 05/24/2023 [facility] Source Comments (unrecognize d section and content) In the event this informatio n is protected by the Federal Confidentiality of Alcohol and Drug Abuse Patient Records regulations: The Federal rules restrict any use of the information to criminally investigate or prosecute any alcohol or drug abuse patient.[facility] the event this information is protected by the Federal Confidentiality of Alcohol and Drug Abuse Patient Records regulations: The Federal rules restrict any use of the information to criminally investigate or prosecute any alcohol or drug abuse patient.[facility] the event this information is protected by the Federal Confidentiality of Alcohol and Drug Abuse Patient Records regulations: The Federal rules restrict any use of the information to criminally investigate or prosecute any alcohol or drug abuse patient.[facility] the event this information is protected by the Federal Confidentiality of Alcohol and Drug Abuse Patient Records regulations: The Federal rules restrict any use of the information to criminally investigate or prosecute any alcohol or drug abuse patient.[facility] the event this information is protected by the Federal Confidentiality of Alcohol and Drug Abuse Patient Records regulations: The Federal rules restrict any use of the information to criminally investigate or prosecute any alcohol or drug abuse patient.[facility] the event this information is protected by the Federal Confidentiality of Alcohol and Drug Abuse Patient Records regulations: The Federal rules restrict any use of the information to criminally investigate or prosecute any alcohol or drug abuse patient.[facility] the event this information is protected by the Federal Confidentiality of Alcohol and Drug Abuse Patient Records regulations: The Federal rules restrict any use of the information to criminally investigate or prosecute any alcohol or drug abuse patient.[facility] the event this information is protected by the Federal Confidentiality of Alcohol and Drug Abuse Patient Records regulations: The Federal rules restrict any use of the information to criminally investigate or prosecute any alcohol or drug abuse patient.[facility] the event this information is protected by the Federal Confidentiality of Alcohol and Drug Abuse Patient Records regulations: The Federal rules restrict any use of the information to criminally investigate or prosecute any alcohol or drug abuse patient.[facility] the event this information is protected by the Federal Confidentiality of Alcohol and Drug Abuse Patient Records regulations: The Federal rules restrict any use of the information to criminally investigate or prosecute any alcohol or drug abuse patient.[facility] the event this information is protected by the Federal Confidentiality of Alcohol and Drug Abuse Patient Records regulations: The Federal rules restrict any use of the information to criminally investigate or prosecute any alcohol or drug abuse patient.[facility] the event this information is protected by the Federal Confidentiality of Alcohol and Drug Abuse Patient Records regulations: The Federal rules restrict any use of the information to criminally investigate or prosecute any alcohol or drug abuse patient.[facility] the event this information is protected by the Federal Confidentiality of Alcohol and Drug Abuse Patient Records regulations: The Federal rules restrict any use of the information to criminally investigate or prosecute any alcohol or drug abuse patient.[facility] the event this information is protected by the Federal Confidentiality of Alcohol and Drug Abuse Patient Records regulations: The Federal rules restrict any use of the information to criminally investigate or prosecute any alcohol or drug abuse patient.[facility] the event this information is protected by the Federal Confidentiality of Alcohol and Drug Abuse Patient Records regulations: The Federal rules restrict any use of the information to criminally investigate or prosecute any alcohol or drug abuse patient.[facility] the event this information is protected by the Federal Confidentiality of Alcohol and Drug Abuse Patient Records regulations: The Federal rules restrict any use of the information to criminally investigate or prosecute any alcohol or drug abuse patient.[facility] the event this information is protected by the Federal Confidentiality of Alcohol and Drug Abuse Patient Records regulations: The Federal rules restrict any use of the information to criminally investigate or prosecute any alcohol or drug abuse patient.[facility] the event this information is protected by the Federal Confidentiality of Alcohol and Drug Abuse Patient Records regulations: The Federal rules restrict any use of the information to criminally investigate or prosecute any alcohol or drug abuse patient.[facility] the event this information is protected by the Federal Confidentiality of Alcohol and Drug Abuse Patient Records regulations: The Federal rules restrict any use of the information to criminally investigate or prosecute any alcohol or drug abuse patient.[facility] the event this information is protected by the Federal Confidentiality of Alcohol and Drug Abuse Patient Records regulations: The Federal rules restrict any use of the information to criminally investigate or prosecute any alcohol or drug abuse patient.[facility] the event this information is protected by the Federal Confidentiality of Alcohol and Drug Abuse Patient Records regulations: The Federal rules restrict any use of the information to criminally investigate or prosecute any alcohol or drug abuse patient.[facility] the event this information is protected by the Federal Confidentiality of Alcohol and Drug Abuse Patient Records regulations: The Federal rules restrict any use of the information to criminally investigate or prosecute any alcohol or drug abuse patient.[facility] the event this information is protected by the Federal Confidentiality of Alcohol and Drug Abuse Patient Records regulations: The Federal rules restrict any use of the information to criminally investigate or prosecute any alcohol or drug abuse patient.[facility] the event this information is protected by the Federal Confidentiality of Alcohol and Drug Abuse Patient Records regulations: The Federal rules restrict any use of the information to criminally investigate or prosecute any alcohol or drug abuse patient.[facility] the event this information is protected by the Federal Confidentiality of Alcohol and Drug Abuse Patient Records regulations: The Federal rules restrict any use of the information to criminally investigate or prosecute any alcohol or drug abuse patient.[facility] the event this information is protected by the Federal Confidentiality of Alcohol and Drug Abuse Patient Records regulations: The Federal rules restrict any use of the information to criminally investigate or prosecute any alcohol or drug abuse patient.[facility] the event this information is protected by the Federal Confidentiality of Alcohol and Drug Abuse Patient Records regulations: The Federal rules restrict any use of the information to criminally investigate or prosecute any alcohol or drug abuse patient.[facility] the event this information is protected by the Federal Confidentiality of Alcohol and Drug Abuse Patient Records regulations: The Federal rules restrict any use of the information to criminally investigate or prosecute any alcohol or drug abuse patient.[facility] the event this information is protected by the Federal Confidentiality of Alcohol and Drug Abuse Patient Records regulations: The Federal rules restrict any use of the information to criminally investigate or prosecute any alcohol or drug abuse patient.[facility] the event this information is protected by the Federal Confidentiality of Alcohol and Drug Abuse Patient Records regulations: The Federal rules restrict any use of the information to criminally investigate or prosecute any alcohol or drug abuse patient.[facility] the event this information is protected by the Federal Confidentiality of Alcohol and Drug Abuse Patient Records regulations: The Federal rules restrict any use of the information to criminally investigate or prosecute any alcohol or drug abuse patient.[facility] the event this information is protected by the Federal Confidentiality of Alcohol and Drug Abuse Patient Records regulations: The Federal rules restrict any use of the information to criminally investigate or prosecute any alcohol or drug abuse patient.[facility] the event this information is protected by the Federal Confidentiality of Alcohol and Drug Abuse Patient Records regulations: The Federal rules restrict any use of the information to criminally investigate or prosecute any alcohol or drug abuse patient.OhiohealthIn the event this information is protected by the Federal Confidentiality of Alcohol and Drug Abuse Patient Records regulations: The Federal rules restrict any use of the information to criminally investigate or prosecute any alcohol or drug abuse patient.[place]healthIn the event this information is protected by the Federal Confidentiality of Alcohol and Drug Abuse Patient Records regulations: The Federal rules restrict any use of the information to criminally investigate or prosecute any alcohol or drug abuse patient.[place]healthIn the event this information is protected by the Federal Confidentiality of Alcohol and Drug Abuse Patient Records regulations: The Federal rules restrict any use of the information to criminally investigate or prosecute any alcohol or drug abuse patient.[place]healthIn the event this information is protected by the Federal Confidentiality of Alcohol and Drug Abuse Patient Records regulations: The Federal rules restrict any use of the information to criminally investigate or prosecute any alcohol or drug abuse patient.[facility]healthIn the event this information is protected by the Federal Confidentiality of Alcohol and Drug Abuse Patient Records regulations: The Federal rules restrict any use of the information to criminally investigate or prosecute any alcohol or drug abuse patient.[facility]healthIn the event this information is protected by the Federal Confidentiality of Alcohol and Drug Abuse Patient Records regulations: The Federal rules restrict any use of the information to criminally investigate or prosecute any alcohol or drug abuse patient.[facility]healthIn the event this information is protected by the Federal Confidentiality of Alcohol and Drug Abuse Patient Records regulations: The Federal rules restrict any use of the information to criminally investigate or prosecute any alcohol or drug abuse patient.[facility]healthIn the event this information is protected by the Federal Confidentiality of Alcohol and Drug Abuse Patient Records regulations: The Federal rules restrict any use of the information to criminally investigate or prosecute any alcohol or drug abuse patient.[facility] Reason for Visit (unrecogniz ed section and content) Reason Onset Date Comments Nurse Triage Call 09/29/2021 Reason Comments Dizziness Reason Comments Dizziness loss of balance Fatigue Reason Comments Results, Lab Reason Comments Results Reason Onset Date Comments Refill Request 09/20/2021 Reason Onset Date Comments Patient Request 10/25/2021 Reason Comments Follow Up Reason Comments Future Appointment Question Reason Comments shower chair Reason Comments Social Work Services Reason Comments Orders Shower Chair Consult Electrical Timing Device Calibrator Medication Problem Iodine for thyroid Reason Comments Refill Request Reason Comments Referral Request Reason Comments Leg Injury Needs Assistance Reason Comments bed pads/future apt Reason Comments Appointment Patient Update ER visit, knee injur y Reason Comments Bed pads Reason Comments Script for bed pads Reason Comments mail request Reason Comments Compression stockings Reason Comments Follow Up Reason Comments Results Appointment Reason Onset Date Comments Refill Request 06/29/2022 Reason Comments future apt/motorized wheel chair Reason Comments RX for Pull Ups Reason Comments Question from Michael DDM Reason Comments Letter Reason Comments Vision Loss Both Eyes Reason Comments 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 Pilot Relationship Specialty Start Date End Date Derian Rodriguez MD [address] [place] [id number] PCP - General 07/27/06 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 Pilot Relationship Specialty Start Date End Date Derian Rodriguez MD [address] [place] [address] PCP - General 07/27/06 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 Pilot Relationship Specialty Start Date End Date Derian Rodriguez MD [facility] [place] [address] PCP - General 07/27/06 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 Pilot Relationship Specialty Start Date End Date Derian Rodriguez MD [address] [place] [address], [place] [address] PCP - General 07/27/06 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 Pilot Relationship Specialty Start Date End Date Derian Rodriguez MD [address] [place] [address], [place] [address] PCP - General 07/27/06 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 Pilot Relationship Specialty Start Date End Date Derian Rodriguez MD [address] [place] [address], [place] [address] PCP - General 07/27/06 Balloon Pilot Relationship Specialty Start Date End Date Derian Rodriguez MD [address] [place] [address], [place] [address] PCP - General 07/27/06 Balloon Pilot Relationship Specialty Start Date End Date Derian Rodriguez MD [address] [place] [address], [place] [address] PCP - General 07/27/06 Balloon Pilot Relationship Specialty Start Date End Date Derian Rodriguez MD [address] [place] [address], [place] [address] PCP - General 07/27/06 Balloon Pilot Relationship Specialty Start Date End Date Derian Rodriguez MD [address] [place] [address], [place] [address] PCP - General 07/27/06 Balloon Pilot Relationship Specialty Start Date End Date Derian Rodriguez MD [address] [place] [address], [place] [address] PCP - General 07/27/06 Balloon Pilot Relationship Specialty Start Date End Date Derian Rodriguez MD [address] [place] [address] PCP - General 07/27/06 Balloon Pilot Relationship Specialty Start Date End Date Derian Rodriguez MD [address] [place] [address] PCP - General 07/27/06 Balloon Pilot Relationship Specialty Start Date End Date Derian Rodriguez MD [address] [place] [address] PCP - General 07/27/06 Balloon Pilot Relationship Specialty Start Date End Date Derian Rodriguez MD [address] [place] [address] PCP - General 07/27/06 Balloon Pilot Relationship Specialty Start Date End Date Derian Rodriguez MD [address] [place] [address] PCP - General 07/27/06 Balloon Pilot Relationship Specialty Start Date End Date Derian Rodriguez MD [address] [place] [address] PCP - General 07/27/06 Balloon Pilot Relationship Specialty Start Date End Date Derian Rodriguez MD [address] [place] [address] PCP - General 07/27/06 Balloon Pilot Relationship Specialty Start Date End Date Derian Rodriguez MD [address] [place] [address] (work) PCP - General 07/27/06 FOR RECORDS PERTAINING TO PATIENTS WHO ARE OR HAVE BEEN ENROLLED IN A CHEMICAL DEPENDENCY/SUBSTANCEABUSE PROGRAM, SOME INFORMATION MAY BE OMITTED. This clinical summary was aggregated from multiple sources. Caution should be exercised in using it in the provision of clinical care. This summary normalizes information from multiple sources, and as a consequence, information in this document may materially change the coding, format and clinical context of patient data. In addition, data may be omitted in some cases. CLINICAL DECISIONS SHOULD BE BASED ON THE PRIMARY CLINICAL RECORDS. [facility]. provides no warranty or guarantee of the accuracy or completeness of information in this document.
[2023-07-04 21:52] LABS: Bacteria 0 SEEN /hpf (None Seen); Mucous, Urine 0 SEEN /hpf (<or=2+); Red Blood Cells-Urine 0 SEEN /hpf (0-5); Squamous Epithelial Cells - UA 0 SEEN /hpf (5-10)
[2023-07-04] MEDS: 0.9% Normal Saline (500mL Bag) 500 ML 1000 ML IV (21:52)
[2023-07-04 21:53] LABS: Color, Urine Yellow (Yellow); Glucose, Dipstick Normal (Normal); Ketone-Dipstick Negative (Negative); Leukocyte Esterase-Dipstick 25 /ul (Negative); Nitrite-Dipstick Negative (Negative); Occult Blood-Urine Negative /ul (Negative); Protein-Dipstick Negative (Negative); Urine Bilirubin Dipstick Negative (Negative); Urine Clarity Clear (Clear); Urine Urobilinogen Normal (Normal)
[2023-07-04 22:04] LABS: Absolute Neutrophil Count 3.8 X10^3/uL (2.0-7.7); Basophil# 0.03 X10^3/uL; Basophil% 0.5 % (0-1); Eosinophil# 0.19 X10^3/uL; Eosinophils% 3.3 % (0-5); Hemoglobin 12.7 g/dL (12.0-15.0); Lymphocyte % 20.8 % (19-41); Mean Corp Hgb Conc 32.6 g/dL (32-36); Mean Corpuscular Hgb 28.5 pg (27.0-32.0); Mean Corpuscular Volume 87.6 fL (81-99); Mean Platelet Vol. 10.5 fl (6.2-12.0); Monocyte# 0.49 X10^3/uL; Monocyte% 8.5 % (0-10); NRBC Flagged by Analyzer 0 % (0-5); Neutrophil # 3.84 X10^3/uL (2.7-7.7); Neutrophil % 66.6 % (47-70); Platelet Count 250 K/mm3 (150-450); RBC Distribution Width CV 11.8 % (11.6-14.6); RBC Distribution Width SD 37.9 fl (35.1-43.9); Red Blood Count 4.45 M/mm3 (4.2-5.4); White Blood Count 5.8 K/mm3 (4.4-11.0)
[2023-07-04 22:05] LABS: White Blood Cells 0-5 SEEN /hpf (0-5)
[2023-07-04 22:26] LABS: Anion Gap 3 (5-15); BUN 19 mg/dL (7-18); BUN/Creat Ratio 26.2 RATIO (10-20); Chloride 108 mmol/L (98-107); Creatinine, Serum 0.73 mg/dL (0.55-1.02); EST Glomerular Filtration Rate 84 mL/min (>60); Est Glom Filt Rate - Afr Amer 102 mL/min (>60); Estimated Creatinine Clearance 62.22 ml/min; Glucose 84 mg/dL (74-106); Potassium 4.1 mmol/L (3.5-5.1); Sodium Level 141 mmol/L (136-145)
[2023-07-04 22:30] VITALS: BP 132/59; PULSE 70; RESP 18; O2SAT 98
[2023-07-05] MEDS: Magnesium Citrate 300 ML PO (00:12)
[2023-07-05] MEDS: Gabapentin 100 MG Capsule PO (00:13)
[2023-07-05] MEDS: Orphenadrine 60 MG/2 ML Ampul IV (00:13)
[2023-07-05 02:09] VITALS: RESP 14
[2023-07-05 02:11] VITALS: BP 132/59; PULSE 70; RESP 18; O2SAT 98
[2023-07-05] MEDS: Ketorolac 15 MG/ML Vial IV (03:15)
== END 2023-07-05 06:49 | disposition home or self-care (01) ==
PROVIDERS: Emergency Provider Emergency Medicine; PCP Internal Medicine; Visit Provider Emergency Medicine
DX: M53.3 Sacrococcygeal disorders, not elsewhere classified (principal); Z79.899 Other long term (current) drug therapy
CPT/HCPCS: 74176; 80048; 81001; 85025; 93005; 96361; 96374; 96375; 99282; J7040; A4216